=== PATIENT | female | born 1955 | race Caucasian/White ===

== ENCOUNTER → 2019-10-06 12:01 | Outpatient (CLI) | payer MEDICARE, SELFPAY ==
--- NOTE | ~2019-10-06 | MM_ITS ---
EXAMINATION: MM screening [facility] BI w abdullahi HISTORY: Screening mammogram TECHNIQUE: Craniocaudal and mediolateral oblique 3-D tomosynthesis images were obtained and synthetic 2-D images were generated. CAD analysis was submitted and interpreted. COMPARISON: Comparison to multiple prior studies sequentially, with oldest reviewed study dated 11/23. BREAST PARENCHYMAL COMPOSITION: There are scattered areas of fibroglandular density. FINDINGS: Benign-appearing bilateral breast masses are stable. There is no evidence of suspicious mas s, calcification, or architectural distortion to suggest malignancy in either breast. There has been no suspicious interval change. IMPRESSION: 1. No mammographic evidence of malignancy. 2. Recommend routine screening mammography in one year. BI-RADS Category 1: Negative Reviewed, dictated and finalized at location A.
== END ==
PROVIDERS: Visit Provider Family Medicine
DX: Z12.31 Encounter for screening mammogram for malignant neoplasm of breast (principal)
CPT/HCPCS: 77063; 77067

== ENCOUNTER 2019-10-12 06:51 | Outpatient (CLI) | payer MEDICARE, SELFPAY ==
--- NOTE | ~2019-10-12 | CT_ITS ---
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 Automated exposure control and iterative reconstruction technique were employed . Exam dose: 556.77 mGy-cm total exam DLP. COMPARISON: 12/28/2018 CT chest abdomen pelvis FINDINGS: CHEST CT: Right Port-A-Cath catheter is again noted. Stable bilateral apical pulmonary scarring. No new or enlarging pulmonary mass. No pulmonary infiltra te or consolidation. Status post left thyroidectomy. There is substernal multinodular right thyroid goiter. No hilar or mediastinal mass lesion or lymphadenopathy. Thoracic aortic and great vessel and coronary artery calcifications. Normal heart size. No pericardial or pleural effusion. ABDOMEN CT: Stable occasional hepatic and right renal cysts. No interval hepatic, splenic, pancreatic, adrenal or renal space-occupying mass lesion. The gallbladder is present. No gallbladder wall thickening or per icholecystic fluid or inflammation. No bile duct or pancreatic duct dilatation. No urinary tract calculus or hydroureteronephrosis. There is extensive calcification of the abdominal aorta and branches; no abdominal aortic aneurysm. N o intraperitoneal or retroperitoneal mass lesion or adenopathy or ascites. No bowel obstruction or intraperitoneal free air. The examination does not include the pelvis. No suspicious osteolytic or osteoblastic lesions are noted. Degenerative changes of the thoracic and lumbar spine, including severe degenerative disc disease at L4-5 fusion at L5-S1.. IMPRESSION: No evidence of metastatic disease or significant change since 12/28/2018 Reviewed, dictated and finalized at Location A. Reviewed, dictated and finalized at location B.
[2019-10-12 07:25] LABS: Estimated Glomerular Filt Rate > 60
== END 2019-10-12 06:52 | disposition home or self-care (01) ==
PROVIDERS: PCP Family Medicine; Visit Provider Internal Medicine Medical Oncology
DX: C18.6 Malignant neoplasm of descending colon (principal)
CPT/HCPCS: 36415; 71260; 74160; Q9967

== ENCOUNTER 2020-01-11 06:37 | Outpatient (CLI) | payer MEDICARE, SELFPAY ==
--- NOTE | ~2020-01-11 | CT_ITS ---
EXAMINATION: CT chest abdomen w con INDICATION: Malignant neoplasm of the descending colon TECHNIQUE: Computed tomographic images of the chest and abdomen were obtained after the administratio n of 100 cc of Omnipaque 350 intravenous contrast. The dose-length product (DLP) was 536.45 mGy-cm. A utomated exposure control and iterative reconstruction technique were employed. COMPARISON: 10/12/2019 FINDINGS: CHEST: There are stable opacities of the right upper lobe. No new or suspicious pulmonary nodule is i dentified. The lungs are free of acute airspace opacities. There is no pleural effusion or pneumothor ax. A right subclavian Port-A-Cath ends with its tip in the right atrium. No pathologically enlarged thoracic lymph nodes are identified. The heart size is normal. There are changes of left thyroidectom y. Multinodular goiter of the right thyroid lobe is again noted. There is calcified coronary artery a therosclerosis. ABDOMEN: Stable cysts of the liver measure up to 8 mm. The spleen, pancreas, gallbladder, and adrenal glands are normal. Cysts of the kidneys measure up to 11 mm on the right. There is calcified atheros clerosis of the aorta and many of the other arteries. Changes of right hemicolectomy are noted. There are no pathologically enlarged abdominal lymph nodes. A moderate volume of colonic stool is present. There is severe lumbar spondylosis. IMPRESSION: 1. No evidence of metastatic disease. Reviewed, dictated and finalized at location A.
[2020-01-11 07:06] LABS: Estimated Glomerular Filt Rate > 60
== END 2020-01-11 06:38 | disposition home or self-care (01) ==
LOC: ANHIMG 06:42
PROVIDERS: PCP Family Medicine; Visit Provider Internal Medicine Medical Oncology
DX: C18.6 Malignant neoplasm of descending colon (principal)
CPT/HCPCS: 36415; 71260; 74160; Q9967

== ENCOUNTER 2020-04-11 07:46 | Outpatient (CLI) | payer MEDICARE, SELFPAY ==
--- NOTE | ~2020-04-11 | CT_ITS ---
EXAMINATION: CT chest abdomen w con DATE: 04/11/2020 08:36 INDICATION: Malignant neoplasm of descending colon TECHNIQUE: Computed tomography (CT) of the chest and abdomen was performed with 100 cc Omnipaque 350 intravenous contrast. Automated exposure control and iterative reconstruction technique were employed . Exam dose: 570.10 mGy-cm total exam DLP. COMPARISON: 01/11/2020 CT chest abdomen 05/01/2014 CT chest abdomen pelvis FINDINGS: CHEST CT: There is bilateral apical scarring, including approximately 7.4 x 9 mm pleura-based opacity in the la teral right upper lung field, without significant change since 04/14/2014. Apical blebs are again note d, primarily on the right. There is a small linear discoid scarring in the posterolateral left lower lobe, stable since 05/01/2014. No pulmonary infiltrate or consolidation or pulmonary mass lesion is noted otherwise. There is right thyroid enlargement and calcification, extending into the superior mediastinum, consis tent with thyroid goiter. There is resection of the left thyroid lobe. No hilar or mediastinal mass lesion or lymphadenopathy. No thoracic aortic aneurysm or dissection. There is thoracic aortic, great vessel and coronary artery atherosclerotic calcification. Right Port-A-Cath catheter tip in upper right atrium. Normal heart size. No pericardial effusion. No pleural effusion. ABDOMEN CT: 8 mm and 4 mm probable hepatic cysts, unchanged since 01/11/2020. No interval hepatic space-occupying m ass lesion is evident. Normal splenic size. The gallbladder is present. No gallbladder wall thickening or pericholecystic fluid or fat stranding. No bile duct or pancreatic duct dilatation. No pancreatic mass lesion or calcification. Normal morphology of the adrenal glands. 6 mm upper pole and 1 cm lower pole right renal probable cysts, stable since 01/11/2020. Probable 3 mm upper pole left renal cyst, stable. No urinary tract calculus or hydronephrosis is evid ent. There is atherosclerotic calcification of the abdominal aorta, renal arteries and common iliac arteri es. No abdominal aortic aneurysm. No intraperitoneal or retroperitoneal mass lesion or adenopathy or ascites. No suspicious osteolytic or osteoblastic lesions are noted. Severe degenerative disc disease at lowest included interspace, L4-5. IMPRESSION: Status post left thyroid lobectomy Right thyroid goiter Stable bilateral apical scarring, right greater than left Right Port-A-Cath Stable 8 and 4 mm hepatic cysts Several subcentimeter renal cysts No significant change since 01/11/2020 Reviewed, dictated and finalized at Location A. Reviewed, dictated and finalized at location B.
[2020-04-11 08:31] LABS: Estimated Glomerular Filt Rate > 60
== END 2020-04-11 07:47 | disposition home or self-care (01) ==
LOC: ANHIMG 07:49
PROVIDERS: PCP Family Medicine; Visit Provider Internal Medicine Medical Oncology
DX: C18.6 Malignant neoplasm of descending colon (principal); E04.1 Nontoxic single thyroid nodule; R91.8 Other nonspecific abnormal finding of lung field
CPT/HCPCS: 71260; 74160; Q9967

== ENCOUNTER 2020-07-10 06:35 | Outpatient (CLI) | payer MEDICARE, SELFPAY ==
--- NOTE | ~2020-07-10 | CT_ITS ---
EXAMINATION: CT chest abdomen w con DATE: 07/10/2020 07:06 INDICATION: Colon cancer restaging TECHNIQUE: Computed tomography (CT) of the chest and abdomen was performed with 100 cc Omnipaque 350 intravenous contrast. Automated exposure control and iterative reconstruction technique were employed . Exam dose: 588.88 mGy-cm total exam DLP. COMPARISON: 04/11/2020 CT chest abdomen FINDINGS: CHEST CT: There is right thyroid goiter with calcifications, extending into the superior mediastinum. Status po st left thyroid lobectomy. Normal heart size. No pericardial effusion. No hilar or mediastinal mass lesion or lymphadenopathy. No thoracic aortic aneurysm or dissection. Bilateral apical scarring. No pulmonary infiltrate or consolidation. Right Port-A-Cath catheter tip in upper right atrium. ABDOMEN CT: Probable 2.5 mm hepatic dome cyst (series 3 image 99). 7.5 mm medial segment left hepatic lobe cyst ( image 108) Approximately 7 mm hypoattenuating lesion at the lower aspect of the right hepatic lobe (image 150) a ppears stable compared to 12/28/2018. This is too small to definitively characterize. Differential francisco gnosis includes hepatic cyst, less likely cavernous hemangioma or metastasis. Consider CT follow-up e xamination in 6 months. The liver, spleen, pancreas, adrenal glands are otherwise unremarkable. 9.5 mm and 7 mm right renal cysts. 3 mm left renal cyst. The kidneys are otherwise unremarkable. No u rinary tract calculus or hydroureteronephrosis. There is extensive atherosclerotic calcification of the abdominal aorta, iliac arteries and and at th e origins of the renal arteries. No abdominal aortic aneurysm. No intraperitoneal or retroperitoneal mass lesion or adenopathy or ascites. There is severe degenerative disc disease in the lower cervical spine. Degenerative spurring of the t horacic spine. Severe degenerative disc disease at L4-5. L5-S1 is excluded from examination. IMPRESSION: Several probable hepatic cysts Bilateral renal cysts Right thyroid goiter; status post left thyroid lobectomy Right Port-A-Cath catheter in upper right atrium Reviewed, dictated and finalized at Location A. Reviewed, dictated and finalized at location A. YTICS MANAGER
[2020-07-10 06:59] LABS: Estimated Glomerular Filt Rate > 60
== END 2020-07-10 06:36 | disposition home or self-care (01) ==
PROVIDERS: PCP Family Medicine; Visit Provider Internal Medicine Medical Oncology
DX: C18.6 Malignant neoplasm of descending colon (principal); N28.1 Cyst of kidney, acquired; E04.1 Nontoxic single thyroid nodule; Z95.828 Presence of other vascular implants and grafts
CPT/HCPCS: 71260; 74160; Q9967

== ENCOUNTER 2020-09-07 10:44 | Outpatient (CLI) | payer MEDICARE, SELFPAY ==
--- NOTE | ~2020-09-07 | MR_ITS ---
EXAMINATION: MR lumbar spine wo [facility] EXAM DATE: 09/07/2020 11:47 INDICATION: Lumbar disc disease. TECHNIQUE: Multi-sequential, multiplanar MR images of the lumbar spine were obtained without contrast . Sagittal T1, T2, T2 fat saturation images. Axial T2 weighted images. There is no prior study for comparison. FINDINGS: Complete osseous fusion of the L5-S1 vertebral bodies. There is severe loss of the L4-5 dis c height, but only mild endplate degenerative signal change. The vertebral bodies are aligned in the AP dimension. The conus medullaris terminates at the T12-L1 level and has normal signal intensity and morphology. There is a hemangioma in the inferior endplate of L1. Level by level evaluation: T12-L1: Disc does not extend beyond the endplate margin. Facet arthropathy: Mild. Neural foraminal stenosis: No stenosis. Central canal stenosis: No stenosis. L1-L2: Disc does not extend beyond the endplate margin. Facet arthropathy: Mild. Neural foraminal stenosis: No stenosis. Central canal stenosis: No stenosis. L2-L3: Disc does not extend beyond the endplate margin. Facet arthropathy: Mild. Neural foraminal stenosis: No stenosis. Central canal stenosis: No stenosis. L3-L4: There is a mild diffuse disc bulge. Facet arthropathy: Mild to moderate. Neural foraminal stenosis: No stenosis. Central canal stenosis: No stenosis. L4-L5: There is a mild to moderate diffuse disc bulge. Facet arthropathy: Mild to moderate. Neural foraminal stenosis: Moderate left, mild to moderate right. Central canal stenosis: Mild. L5-S1: There is mild to moderate posterior disc osteophyte complex. Facet arthropathy: Mild to moderate. Neural foraminal stenosis: Mild bilateral. Central canal stenosis: Mild. IMPRESSION: 1. Lower lumbar predominant spondylosis. Reviewed, dictated and finalized at location B. DRILL OPERATOR
== END 2020-09-07 10:45 | disposition home or self-care (01) ==
LOC: ANHIMG 10:47
PROVIDERS: PCP Family Medicine; Visit Provider Family Medicine
DX: M51.36 Other intervertebral disc degeneration, lumbar region (principal); M47.816 Spondylosis without myelopathy or radiculopathy, lumbar region
CPT/HCPCS: 72148

== ENCOUNTER → 2020-10-08 14:00 | Outpatient (CLI) | payer MEDICARE, SELFPAY ==
--- NOTE | ~2020-10-08 | MM_ITS ---
EXAMINATION: MM screening [facility] BI w abdullahi HISTORY: Screening mammogram TECHNIQUE: Craniocaudal and mediolateral oblique 3-D tomosynthesis images were obtained and synthetic 2-D images were generated. CAD analysis was submitted and interpreted. COMPARISON: 10/06/2019, 07/15/2018, 06/25/2017 BREAST PARENCHYMAL COMPOSITION: There are scattered areas of fibroglandular density. FINDINGS: A stable mass in the anterior third of the right breast is considered benign given the lack of interval change. There is no evidence of suspicious mass, calcification, or architectural distort ion to suggest malignancy in either breast. There has been no suspicious interval change. IMPRESSION: 1. No mammographic evidence of malignancy. 2. Recommend routine screening mammography in one year. BI-RADS Category 2: Benign finding(s). Reviewed, dictated and finalized at location A.
== END ==
PROVIDERS: PCP Family Medicine; Visit Provider Family Medicine
DX: Z12.31 Encounter for screening mammogram for malignant neoplasm of breast (principal)
CPT/HCPCS: 77063; 77067

== ENCOUNTER → 2020-11-03 07:05 | Outpatient (CLI) | payer MEDICARE, SELFPAY ==
[2020-11-03 20:54] LABS: SARS-CoV-2 RNA PCR Negative
== END ==
PROVIDERS: PCP Family Medicine; Visit Provider Internal Medicine Gastroenterology
DX: Z01.812 Encounter for preprocedural laboratory examination (principal); Z20.822 Contact with and (suspected) exposure to COVID-19
CPT/HCPCS: C9803; U0003; U0005

== ENCOUNTER 2020-11-07 04:47 | Day surgery (SDC) | payer MEDICARE, SELFPAY ==
[2020-11-01 09:11] VITALS: BMI 26.8
[2020-11-07 07:52] VITALS: BP 140/67; PULSE 113; RESP 18; TEMP 36.9; O2SAT 100
[2020-11-07] MEDS: LACTATED RINGERS 1,000 ML 150 ML IV CONT (08:01)
--- NOTE | 2020-11-07 08:25 | WPDANESEPPF ---
Anes - Initial Pre Proc Eval Procedure: Operation Date: 11/07/20 09:00 Proposed Procedures p Screening Colonoscopy - Leland Mendoza MD Date/Time: 11/07/20 08:25 Surgeon: Leland Mendoza MD Pre Op Diagnosis: hx of colon ca Patient Data Age: 65 Gender: F Height: 5 ft 7 in Weight: 77 kg Last Vital Signs Temp 98.5 F 11/07/20 07:52 Pulse 113 H 11/07/20 07:52 Resp 18 11/07/20 07:52 BP 140/67 11/07/20 07:52 Pulse Ox 100 11/07/20 07:52 Allergies Allergy/AdvReac Type Severity Reaction Status Date / Time codeine Allergy Unknown Nausea and Verified 11/07/20 07:50 Vomiting Sulfa (Sulfonamide Allergy Unknown Rash Verified 11/07/20 07:50 Antibiotics) sulfamethizole Allergy Unknown Hives Verified 11/07/20 07:50 Home Medications Medication Instructions Recorded Confirmed Type atorvastatin 20 mg PO DAILY 11/01/20 11/01/20 History lisinopril-hydrochlorothiazide 1 tablet PO DAILY 11/01/20 11/01/20 History pantoprazole 40 mg PO DAILY 11/01/20 11/01/20 History Patient hx anesthesia problems: none Family hx anesthesia problems: none PMFSH Past Medical History Medical History (Updated 11/07/20 @ 08:25 by Rajesh Li MD) Arthritis H/O colon cancer, stage I Hyperlipidemia Hypertension Family History Family History (Updated 10/17/16 @ 23:56 by DOCTOR UNKNOWN) Father Family history of diabetes mellitus in first degree relative Family history of heart disease in male family member before age 55 Hypertension Family history of elevated blood lipids Family history of coronary artery disease, Onset Age: 65 Patient's father is Mother Family history of heart disease in male family member before age 55 Hypertension Family history of chronic obstructive pulmonary disease Family history of coronary artery disease, Onset Age: 82 Patient's mother is Sibling Family history of heart disease in male family member before age 55 Family history of premature coronary heart disease, Onset Age: 62 Family history of diabetes mellitus in first degree relative Other Diabetes mellitus Family history of allergic disorder Social History Social History Smoking status: Former smoker Smoking end date: 07/13/04 Alcohol intake: current Alcohol use details: glass of wine every night Substance use type: does not use Living arrangements: with family Gender identity (if verbalized by the patient): Female Spiritual care concerns: No Anes - Eval Final PreProcedure Day of Procedure 11/07/20 08:25 Patient weight: overweight Heart: regular rate and rhythm Lungs: clear to auscultation Airway: Mallampati scale class II Neurological: alert and oriented Last oral intake: >/= 8 hours ASA classification: III Emergent: no Anesthetic plan: proceed Anesthesia type and monitoring: general GIVS and standard monitoring Informed Consent: The patient's anesthetic plan and its attendant risks and benefits were discussed with the patient/family/POA. Questions were solicited and answers provided to the satisfaction of the patient/family/POA.
[2020-11-07 09:07] VITALS: BP 120/71; PULSE 100; RESP 20; O2SAT 98
[2020-11-07 09:17] VITALS: BP 123/74; PULSE 102; RESP 21; O2SAT 99
[2020-11-07 09:27] VITALS: BP 134/69; PULSE 104; RESP 23; O2SAT 98
--- NOTE | 2020-11-09 11:06 | PM.HPGS ---
History of Present Illness History of Present Illness Consent: Risks, benefits, and alternatives have been discussed and questions answered. Patient agrees to proceed with procedure. Chief complaint: hx of colon ca Narrative: Lesly Gregory is a 65 year old female with history of colon cancer Review of Systems Review of Systems: All systems reviewed & are unremarkable except as noted in HPI and below PMFSH Past Medical History Medical History Arthritis H/O colon cancer, stage I Hyperlipidemia Hypertension Family History Family History Father Family history of diabetes mellitus in first degree relative Family history of heart disease in male family member before age 55 Hypertension Family history of elevated blood lipids Family history of coronary artery disease, Onset Age: 65 Patient's father is Mother Family history of heart disease in male family member before age 55 Hypertension Family history of chronic obstructive pulmonary disease Family history of coronary artery disease, Onset Age: 82 Patient's mother is Sibling Family history of heart disease in male family member before age 55 Family history of premature coronary heart disease, Onset Age: 62 Family history of diabetes mellitus in first degree relative Other Diabetes mellitus Family history of allergic disorder Social History Social History Smoking status: Former smoker Smoking end date: 07/13/04 Alcohol intake: current Alcohol use details: glass of wine every night Substance use type: does not use Living arrangements: with family Gender identity (if verbalized by the patient): Female Spiritual care concerns: No Meds Home Medications and Allergies Home Medications Medication Instructions Recorded Confirmed Type atorvastatin 20 mg PO DAILY 11/01/20 11/01/20 History lisinopril-hydrochlorothiazide 1 tablet PO DAILY 11/01/20 11/01/20 History pantoprazole 40 mg PO DAILY 11/01/20 11/01/20 History Allergies Allergy/AdvReac Type Severity Reaction Status Date / Time codeine Allergy Unknown Nausea and Verified 11/07/20 07:50 Vomiting Sulfa (Sulfonamide Allergy Unknown Rash Verified 11/07/20 07:50 Antibiotics) sulfamethizole Allergy Unknown Hives Verified 11/07/20 07:50 Exam Const: General: alert Orientation/consciousness: patient oriented x3 Resp: Auscultation: clear to auscultation bilaterally Cardio: Rhythm: regular rhythm GI: GI Palp: Yes Soft to palpation and No Tenderness to palpation present (GI) Neuro: General: patient oriented x3 Assessment and Plan Assessment and plan (1) History of colon cancer: Code(s): Z85.038 - Personal history of other malignant neoplasm of large intestine Status: Acute Assessment and Plan: Colonoscopy with possible biopsy or polypectomy or cautery or injection of substances.
== END 2020-11-07 09:43 | disposition home or self-care (01) ==
PROVIDERS: PCP Family Medicine; Visit Provider Internal Medicine Gastroenterology
PROC: 0DJD8ZZ Inspection of Lower Intestinal Tract, Via Natural or Artificial Opening Endoscopic (ICD-10-PCS; CPT 45378; principal; 2020-11-07 09:00)
DX: Z12.11 Encounter for screening for malignant neoplasm of colon (principal); K57.30 Diverticulosis of large intestine without perforation or abscess without bleeding; Z98.0 Intestinal bypass and anastomosis status; M19.90 Unspecified osteoarthritis, unspecified site; E78.5 Hyperlipidemia, unspecified; Z87.891 Personal history of nicotine dependence; Z85.038 Personal history of other malignant neoplasm of large intestine; I10 Essential (primary) hypertension
CPT/HCPCS: G0105; J2704; J7120

== ENCOUNTER 2020-12-25 06:52 | Outpatient (CLI) | payer MEDICARE, SELFPAY ==
--- NOTE | ~2020-12-25 | CT_ITS ---
EXAMINATION: CT chest abdomen w con EXAM DATE: 12/25/2020 07:26 INDICATION: Colon cancer, metastatic disease to liver. TECHNIQUE: Spiral CT of the chest and abdomen was performed following intravenous injection of 100 mL Omnipaque 350. Axial, coronal and sagittal images chest and abdomen were reviewed. Coronal maximum intensity pixel images of chest reviewed. The dose-length product (DLP) for this examination was 56 8.38 mGy-cm. The exposure was tailored according to patient size (auto mA exposure control), and ite rative reconstruction (ASIR) was used as additional dose reduction technique. Comparison is made to p rior examination from 07/10/2020. FINDINGS: CHEST: There is a right-sided portacatheter. Small amount of biapical scarring is unchanged. Mild em physema. No suspicious pulmonary opacities. There are no pleural or pericardial effusions. Tracheo bronchial tree is patent. There is no mediastinal, hilar or axillary lymphadenopathy. There is no pneumothorax. Heart normal in size. There is mild coronary arterial calcification, arterial scle rosis. Left thyroid lobectomy. Enlarged heterogeneous right thyroid lobe. No central pulmonary embol i. ABDOMEN: Liver segment 4A cyst measuring 8 mm. The liver, spleen, adrenal glands and pancreas are ot herwise unremarkable. Gallbladder is unremarkable. No biliary obstruction. Portal and splenic vein s are patent. Kidneys enhance symmetrically. There is no hydronephrosis. There is no retroperito alber lymphadenopathy. There is moderate scattered arteriosclerotic disease. The stomach and small bowel are unremarkable. There is expected amount of colonic stool. No free i ntraperitoneal gas. There are no osteoblastic or osteolytic lesions identified. IMPRESSION: 1. Stable exam. No evidence of thoracic or abdominal metastatic disease. Reviewed, dictated and finalized at location B.
[2020-12-25 11:41] LABS: Estimated Glomerular Filt Rate > 60
== END 2020-12-25 06:53 | disposition home or self-care (01) ==
PROVIDERS: PCP Family Medicine; Visit Provider Internal Medicine Medical Oncology
DX: C78.00 Secondary malignant neoplasm of unspecified lung (principal); C78.7 Secondary malignant neoplasm of liver and intrahepatic bile duct
CPT/HCPCS: 71260; 74160; Q9967

== ENCOUNTER 2021-06-25 07:08 | Outpatient (CLI) | payer MEDICARE, SELFPAY ==
--- NOTE | ~2021-06-25 | CT_ITS ---
EXAMINATION: CT chest abdomen pelvis w con EXAM DATE: 06/25/2021 07:47 INDICATION: Malignant cancer metastatic to lung. TECHNIQUE: Spiral CT of the chest, abdomen and pelvis was performed following intravenous injection o f 100 mL Omnipaque 350. Axial, coronal and sagittal images chest, abdomen and pelvis were reviewed. Coronal maximum intensity pixel images of chest reviewed. The dose-length product (DLP) for this ex amination was 814.85 mGy-cm. The exposure was tailored according to patient size (auto mA exposure c ontrol), and iterative reconstruction (ASIR) was used as additional dose reduction technique. Compari son is made to prior examination from 12/25/2020. FINDINGS: CHEST: There is a right-sided portacatheter. Small amount of biapical scarring is unchanged. Mild em physema. No new or suspicious pulmonary opacities. There are no pleural or pericardial effusions. Tracheobronchial tree is patent. There is no mediastinal, hilar or axillary lymphadenopathy. Ther e is no pneumothorax. Heart normal in size. There is mild coronary arterial calcification, arteri al sclerosis. Left thyroid lobectomy. Enlarged heterogeneous right thyroid lobe. No central pulmonar y emboli. ABDOMEN: Liver segment 4A subcentimeter cyst The liver, spleen, adrenal glands and pancreas are othe rwise unremarkable. Gallbladder is unremarkable. No biliary obstruction. Portal and splenic veins are patent. Kidneys enhance symmetrically. There is no hydronephrosis. There is no retroperitone al lymphadenopathy. There is moderate scattered arteriosclerotic disease. 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 The stomach and small bowel are unremarkable. There is expected amount of colonic stool. No free i ntraperitoneal gas. There are no osteoblastic or osteolytic lesions identified. IMPRESSION: 1. No evidence of thoracic or abdominal metastatic disease. 2. 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 Reviewed, dictated and finalized at location B. RING AND EVENTS MANAGER
[2021-06-25 07:39] LABS: Estimated Glomerular Filt Rate > 60
== END 2021-06-25 07:09 | disposition home or self-care (01) ==
LOC: ANHIMG 07:12
PROVIDERS: PCP Family Medicine; Visit Provider Internal Medicine Medical Oncology
DX: C80.1 Malignant (primary) neoplasm, unspecified (principal); C78.00 Secondary malignant neoplasm of unspecified lung; C78.7 Secondary malignant neoplasm of liver and intrahepatic bile duct; I70.90 Unspecified atherosclerosis
CPT/HCPCS: 71260; 74177; Q9967

== ENCOUNTER → 2021-10-31 12:34 | Outpatient (CLI) | payer MEDICARE, SELFPAY ==
--- NOTE | ~2021-10-31 | MM_ITS ---
EXAMINATION: MM screening zeeshan BI w abdullahi HISTORY: Screening mammogram TECHNIQUE: Craniocaudal and mediolateral oblique 3-D tomosynthesis images were obtained and synthetic 2-D images were generated. CAD analysis was submitted and interpreted. COMPARISON: 10/08/2020, 10/06/2019, 07/15/2018 bilateral screening mammogram examinations 07/01/2017 Limited left breast ultrasound 06/25/2017 bilateral screening mammogram 03/13/2016, 02/22/2015 and 11/23/2013 [address] examinations from [facility] in [place], [place] BREAST PARENCHYMAL COMPOSITION: There are scattered areas of fibroglandular density. FINDINGS: There is a circumscribed low-density approximately 5.5 mm opacity in the superior subareola r area on the left breast which is unchanged since 11/23/2013. The mammographic features and the stabi lity for 8 years are consistent with benign process. There is no evidence of suspicious mass, calcifi cation, or architectural distortion to suggest malignancy in either breast. There has been no suspici ous interval change. IMPRESSION: 1. No mammographic evidence of malignancy. 2. Recommend routine screening mammography in one year. BI-RADS Category 2: Benign finding(s). Reviewed, dictated and finalized at location A.
== END ==
PROVIDERS: PCP Family Medicine; Visit Provider Family Medicine
DX: Z12.31 Encounter for screening mammogram for malignant neoplasm of breast (principal)
CPT/HCPCS: 77063; 77067

== ENCOUNTER 2021-12-24 07:11 | Outpatient (CLI) | payer MEDICARE, SELFPAY ==
--- NOTE | ~2021-12-24 | CT_ITS ---
EXAMINATION: CT chest abdomen pelvis wo con DATE: 12/24/2021 07:31 INDICATION: Colon cancer metastatic to lung; restaging TECHNIQUE: Computed tomography (CT) of the chest, abdomen, and pelvis was performed without intraveno us contrast. Automated exposure control and iterative reconstruction technique were employed. Exam do se: 592.51 mGy-cm total exam DLP. COMPARISON: 06/25/2021 CT chest abdomen pelvis FINDINGS: CHEST CT: Right Port-A-Cath in superior aspect of right atrium. Right thyroid goiter with calcifications, extending into superior mediastinum. Mild bilateral apical scarring. Chronic peripheral scar in the anterolateral right upper lobe. No si gnificant new or developing pulmonary mass density. No pulmonary infiltrate or consolidation. No pneumothorax. Normal heart size. No pericardial or pleural effusion. ABDOMEN/PELVIS CT: 8 mm medial segment left hepatic probable cyst. The liver, gallbladder, bile ducts, pancreas, pancrea tic duct, spleen, and adrenal glands and kidneys are otherwise unremarkable. No urinary tract calculu s or hydroureteronephrosis. The urinary bladder, uterus and adnexal areas are unremarkable. There is prominent atherosclerotic calcification of the abdominal aorta and branches. No intraperiton eal or retroperitoneal or pelvic mass lesion or adenopathy or ascites. Normal appendix. No bowel obstruction or intraperitoneal free air. Very small fat-containing umbilical hernia. Degenerative disc disease in lower cervical spine. Severe degenerative disc disease at L5-S1. Bilateral hip osteoarthritis. IMPRESSION: Right Port-A-Cath in right atrium Right thyroid goiter Chronic mild lung scarring Reviewed, dictated and finalized at Location A. Reviewed, dictated and finalized at location A.
== END 2021-12-24 07:12 | disposition home or self-care (01) ==
PROVIDERS: PCP Family Medicine; Visit Provider Internal Medicine Medical Oncology
DX: C34.90 Malignant neoplasm of unspecified part of unspecified bronchus or lung (principal); C78.00 Secondary malignant neoplasm of unspecified lung; E04.9 Nontoxic goiter, unspecified
CPT/HCPCS: 71250; 74176

== ENCOUNTER 2022-06-25 06:46 | Outpatient (CLI) | payer MEDICARE, SELFPAY ==
--- NOTE | ~2022-06-25 | CT_ITS ---
EXAMINATION: CT chest abdomen pelvis wo con DATE: 06/25/2022 07:08 INDICATION: Malignant neoplasm of the descending colon TECHNIQUE: Transaxial computed tomographic images of the chest, abdomen, and pelvis were obtained wit hout intravenous contrast. The dose-length product (DLP) was 608.30 mGy-cm. Automated exposure contr ol and iterative reconstruction technique were employed. COMPARISON: 12/24/2021, 06/25/2021 FINDINGS: CHEST CT: There are stable nodules of the right upper lobe and left lower lobe. No pleural effusion or pneumoth orax. There is a stable 1.5 x 0.7 cm groundglass nodule of the right lower lobe. There is mild emphys toño. The lungs are free of acute airspace opacities. A right subclavian Port-A-Cath ends with its tip in the right atrium. Multinodular goiter of the right thyroid lobe is again noted. No pathologically enlarged thoracic lymph nodes are identified. The heart size is normal. There is calcified coronary artery atherosclerosis. ABDOMEN/PELVIS CT: There is an 8 mm cyst of the left hepatic lobe. The spleen, pancreas, gallbladder, and adrenal glands are normal. The kidneys are unremarkable. There is calcified atherosclerosis of the aorta and many o f the other arteries. No pathologically enlarged abdominal or pelvic lymph nodes are identified. Ther e are changes of right hemicolectomy. There is no free intraperitoneal gas or evidence of bowel obstr uction. There is severe lumbar spondylosis. IMPRESSION: 1. Stable chronic nodules of the lungs which could reflect stable metastatic disease. No new findings . Reviewed, dictated and finalized at location A. ER CONTROL OPERATOR IMPRESSION: 1. Stable chronic nodules of the lungs which could reflect stable metastatic di sease. No new findings.
== END 2022-06-25 06:47 | disposition home or self-care (01) ==
PROVIDERS: PCP Family Medicine; Visit Provider Internal Medicine Medical Oncology
DX: C18.8 Malignant neoplasm of overlapping sites of colon (principal); Z45.9 Encounter for adjustment and management of unspecified implanted device; R91.8 Other nonspecific abnormal finding of lung field
CPT/HCPCS: 71250; 74176

== ENCOUNTER 2022-11-03 11:55 | Outpatient (CLI) | payer MEDICARE, SELFPAY ==
--- NOTE | ~2022-11-03 | DEXA_ITS ---
Bone Density Report Name: ELIAS CUMMINGS Age: 67 Sex: Female Ethnicity: White Date of : 1955 Indication: hyperparathyroidism; height loss; cancer; Referring Provider: MONIQUE, SARAH Norwood Study: Bone densitometry was performed. Exam Date: November 03, 2022 Accession number: [id number] Bone Density: Region BMD T-score Z-score Classification AP Spine(L1, L2, L3) 1.145 1.2 3.1 Normal Femoral Neck (Left) 0.711 -1.2 0.5 Osteopenia Total Hip (Left) 0.836 -0.9 0.6 Normal Femoral Neck (Right) 0.678 -1.5 0.2 Osteopenia Total Hip (Right) 0.834 -0.9 0.5 Normal Femoral Neck Mean 0.694 -1.4 0.3 Osteopenia Total Hip Mean 0.835 -0.9 0.6 Normal World Health Organization criteria for BMD impression classify patients as: Normal (T-score at or above -1.0), Osteopenia (T-score between -1.0 and -2.5), or Osteoporosis (T-score at or below -2.5). 10-year Fracture Risk(1): Major Osteoporotic Fracture 12% Hip Fracture 2.0% Reported Risk Factors: [place] (), Neck BMD=0.678, BMI=26.6, alcohol use (1) FRAX(R) Version 3.08. Fracture probability calculated for an untreated patient. Fracture probability may be lower if the patient has received treatment. Clinical Information Provided by Patient: Has 3 or more alcoholic drinks per day Has the following medical conditions: Cancer, Hyperparathyroidism Patient maximum height was 66 Menopause Age: 53 No regular weight bearing exercise Does not regularly consume dairy products Drinks caffeinated beverages Onset of menses at age 12 Number of children 2 Impression: The patient has low bone mass, based on the Right Femoral Neck T-score. The patient has risk factors, including: excessive alcohol use. Discussion: BONE DENSITY IS LOW AT ONE OR MORE SKELETAL SITES. This patient's lowest T-score is low at one or more skeletal sites. It meets the World Health Organization's (WHO) criteria for ?low bone mass? (T-score between -1.0 and -2.5). The patient's 10-year risk of fracture as calculated by FRAX is less than the threshold where pharmacological therapy is recommended by the National Osteoporosis Foundation (NOF). However, all treatment decisions require clinical judgment and consideration of individual patient factors, including patient preferences, comorbidities, previous drug use, risk factors not captured in the FRAX model (e.g., frailty, falls, vitamin D deficiency, increased bone turnover, interval significant decline in bone density) and possible under or overestimation of fracture risk by FRAX. The patient should follow a healthful lifestyle (good nutrition with adequate calcium and vitamin D, and appropriate weight-bearing exercise). Follow-Up: Consider repeating this study in 2 to 3 years to reassess this patient's status, or reji
--- NOTE | ~2022-11-03 | MM_ITS ---
EXAMINATION: MM screening zeeshan BI w abdullahi HISTORY: Screening mammogram TECHNIQUE: Craniocaudal and mediolateral oblique 3-D tomosynthesis images were obtained and synthetic 2-D images were generated. CAD analysis was submitted and interpreted. COMPARISON: 10/31/2021, 10/08/2020, 10/06/2019 bilateral screening mammogram examinations BREAST PARENCHYMAL COMPOSITION: There are scattered areas of fibroglandular density. FINDINGS: Occasional circumscribed low-density small benign appearing stable opacities. There is no e vidence of suspicious mass, calcification, or architectural distortion to suggest malignancy in eithe r breast. There has been no suspicious interval change. IMPRESSION: 1. No mammographic evidence of malignancy. 2. Recommend routine screening mammography in one year. BI-RADS Category 2: Benign finding(s). Reviewed, dictated and finalized at location A.
== END 2022-11-03 11:56 | disposition home or self-care (01) ==
LOC: CHSIMG 11:57
PROVIDERS: PCP Family Medicine; Visit Provider Family Medicine
DX: Z12.31 Encounter for screening mammogram for malignant neoplasm of breast (principal); Z78.0 Asymptomatic menopausal state; M85.89 Other specified disorders of bone density and structure, multiple sites
CPT/HCPCS: 77063; 77067; 77080

== ENCOUNTER 2023-01-02 11:35 | Emergency (ER) | payer MEDICARE, SELFPAY ==
[2023-01-02] VITALS (14 sets, daily range): BP systolic 106–157; BP diastolic 52–73; PULSE 85–110; RESP 12–22; TEMP 37.3; O2SAT 96–100
--- NOTE | ~2023-01-02 | XR_ITS ---
EXAMINATION: XR chest 2V 01/02/2023 11:58 INDICATION: Chest pain PROCEDURE: 2 view chest COMPARISON: 02/17/2013 FINDINGS: The lungs are clear. Portacatheter tip in the SVC. The cardiomediastinal silhouette is with in normal limits. There are no pleural effusions. There is no pneumothorax suspected. There is api benita pleural thickening/scarring. IMPRESSION: 1: NO ACUTE CARDIOPULMONARY DISEASE. Reviewed, dictated and finalized at location []
--- NOTE | 2023-01-02 11:36 | ED.CHESTPAIN ---
HPI - Chest Pain General Chief Complaint: Chest Pain Stated Complaint: Chest pain Time Seen by Provider: 01/02/23 11:36 Source: patient and RN notes reviewed Mode of arrival: ambulatory Limitations: no limitations History of Present Illness complaint: chest pain Onset (ago): day(s) (2) Timing of current episode: constant Onset: during rest Pain location: substernal Pain radiation: left arm Quality: aching and sharp Relieving factors: nothing Exacerbating factors: inspiration and movement Treatment prior to arrival: none Risk Factors Coronary artery disease risk factors: smoking history, hyperlipidemia and hypertension Related Data Home Medications Medication Instructions Recorded Confirmed atorvastatin 20 mg tablet 20 mg PO DAILY 11/01/20 01/02/23 lisinopril 20 1 tablet PO DAILY 11/01/20 01/02/23 mg-hydrochlorothiazide 25 mg tablet pantoprazole 40 mg tablet,delayed 40 mg PO DAILY 11/01/20 01/02/23 release Allergies Allergy/AdvReac Type Severity Reaction Status Date / Time codeine Allergy Unknown Nausea and Verified 01/02/23 11:43 Vomiting Sulfa (Sulfonamide Allergy Unknown Rash Verified 01/02/23 11:43 Antibiotics) sulfamethizole Allergy Unknown Hives Verified 01/02/23 11:43 PMFSH Past Medical History Medical History Arthritis JOSEPH (generalized anxiety disorder) H/O colon cancer, stage I Hyperlipidemia Hypertension Primary malignant neoplasm of colon with metastasis in female Family History Family History Father Family history of diabetes mellitus in first degree relative Family history of heart disease in male family member before age 55 Hypertension Family history of elevated blood lipids Family history of coronary artery disease, Onset Age: 65 Patient's father is Mother Family history of heart disease in male family member before age 55 Hypertension Family history of chronic obstructive pulmonary disease Family history of coronary artery disease, Onset Age: 82 Patient's mother is Sibling Family history of heart disease in male family member before age 55 Family history of premature coronary heart disease, Onset Age: 62 Family history of diabetes mellitus in first degree relative Other Diabetes mellitus Family history of allergic disorder Social History Social History Smoking status: Former smoker Smoking end date: 07/13/04 Alcohol intake: current Alcohol use details: glass of wine every night Substance use type: does not use Living arrangements: with family Gender identity (if verbalized by the patient): Female Spiritual care concerns: No Exam Const: General: healthy appearing, no acute distress and alert Nutritional Appearance: well nourished Orientation/consciousness: patient oriented x3 Limitations: no limitations HENMT: Head: normal to inspection Ears: external ears normal Face/Nose/Sinus: Normal external nose present Face and sinus: normal facial exam Mouth: Yes moist mucous membranes Eyes: Conjunctivae: conjunctivae normal Pupils: Equal, round and reactive pupils present EOM: EOMs intact bilaterally Neck: Neck: normal visual inspection Chest: Chest palpation & inspection: tenderness pectoral muscle on the left diffusely Resp: Effort & Inspection: normal respiratory effort Auscultation: clear to auscultation bilaterally Cardio: Rate: regular rate Rhythm: regular rhythm GI: GI Palp: Yes Soft to palpation and No Tenderness to palpation present (GI) Auscultation: normal bowel sounds Back/Spine/Pelvis: Cervical Spine: cervical ROM normal Thoracic/Lumbar Spine: thoraco-lumbar ROM normal Skin: General skin exam: normal color Rashes: no rashes Neuro: General: patient oriented x3, moves all extremities, no focal motor deficits and
--- NOTE | 2023-01-02 11:41 | ECG_ITS ---
Measurements Intervals [place] Rate: 98 P: 76 SC: 156 QRS: 38 QRSD: 95 T: 19 QT: 349 QTc: 447 Interpretive Statements SINUS RHYTHM POSSIBLE PREVIOUS INFERIOR MYOCARDIAL INFARCTION , II/aVF] ABNORMAL ECG COMPARED TO ECG 09/01/2018 15:51:02 NO SIGNIFICANT CHANGES Electronically Signed On 01-02-2023 16:22:46 CDT by Mane Carlson M.D.
[2023-01-02] MEDS: ASPIRIN 81 MG CHEWABLE TABLET 324 MG PO (11:48)
[2023-01-02 12:07] LABS: Basophils Absolute Auto 0.04 K/mm3 (0.00-0.10); Basophils Percent Auto 0.5 % (0.0-1.0); Eosinophils Absolute Auto 0.12 K/mm3 (0.02-0.50); Eosinophils Percent Auto 1.4 % (1.0-6.0); Hematocrit 38.5 % (35.0-42.0); Hemoglobin 12.6 g/dL (11.7-13.8); Immature Granulocyte Absolute 0.02 K/mm3 (0.00-0.00); Immature Granulocyte Percent A 0.2 % (0.0-0.0); Lymphocytes Absolute Auto 1.99 K/mm3 (1.10-4.50); Lymphocytes Percent Auto 23.3 % (18.0-42.0); Mean Corpuscular HGB Conc 32.7 g/dL (32.0-36.0); Mean Corpuscular Hemoglobin 30.9 pg (27.0-31.0); Mean Corpuscular Volume 94.4 fL (78.0-102.0); Mean Platelet Volume 9.9 fl (9.2-11.8); Monocytes Absolute Auto 0.58 K/mm3 (0.10-0.90); Monocytes Percent Auto 6.8 % (2.0-11.0); Neutrophils Absolute Auto 5.8 K/mm3 (1.7-7.2); Neutrophils Percent Auto 67.8 % (50.0-70.0); Platelet Count Result 344 K/mm3 (150-420); Red Blood Count 4.08 M/mm3 (4.20-5.40); Red Cell Distribution Width 12.8 % (11.6-14.4); White Blood Count 8.5 K/mm3 (4.8-10.8)
[2023-01-02 12:21] LABS: INR 0.9; Partial Thromboplastin Time 29.1 SEC (23.90-30.70); Prothrombin Time 9.8 Seconds (9.50-12.10)
[2023-01-02 12:24] LABS: D Dimer 0.34 mg/L (0.19-0.50)
[2023-01-02 12:27] LABS: Alanine Aminotransferase 26 U/L (14-59); Albumin Level 3.9 g/dL (3.4-5.0); Alkaline Phosphatase 92 U/L (46-116); Anion Gap 8 mmol/L (8-16); Aspartate Amino Transferase 21 U/L (15-37); Bilirubin,Total 0.3 mg/dL (0.00-1.00); Blood Urea Nitrogen 28 mg/dL (7-18); Calcium 9.5 mg/dL (8.5-10.1); Carbon Dioxide 30 mmol/L (21-32); Chloride 100 mmol/L (98-108); Estimated CRCL calculation 55 ml/min; Estimated Glomerular Filt Rate > 60; Glucose 111 mg/dL (70-99); Osmolality Calculated 292 mOsm/kg (285-295); Potassium 3.6 mmol/L (3.5-5.1); Sodium 138 mmol/L (136-145); Total Protein 7.5 g/dL (6.4-8.2); Troponin I 4.4 ng/L (0.00-60.4)
--- NOTE | 2023-01-02 12:34 | PC.NURSE ---
PT IS LYING ON STRETCHER IN EXAM ROOM TALKING WITH . NAD NOTED. VSS PER MONITOR. PT IS AWAITING RESULTS. WILL CONTINUE TO MONITOR.
[2023-01-02 13:00] LABS: Magnesium 1.9 mg/dL (1.8-2.4)
== END 2023-01-02 13:00 | disposition home or self-care (01) ==
PROVIDERS: Emergency Provider Emergency Medicine; PCP Family Medicine
DX: R07.89 Other chest pain (principal); E78.5 Hyperlipidemia, unspecified; I10 Essential (primary) hypertension; Z87.891 Personal history of nicotine dependence; Z85.038 Personal history of other malignant neoplasm of large intestine
CPT/HCPCS: 36415; 71046; 80053; 83735; 84484; 85025; 85380; 85610; 85730; 93005; 99284; A9270

== ENCOUNTER 2023-05-21 12:21 | Outpatient (CLI) | payer MEDICARE, SELFPAY | END 2023-05-21 12:22 | disposition home or self-care (01) | LOC: CHSIMG 12:23 | PROVIDERS: PCP Family Medicine; Visit Provider Family Medicine | DX: I73.00 Raynaud's syndrome without gangrene (principal) | CPT/HCPCS: 99199 ==

== ENCOUNTER 2023-06-12 08:25 | Outpatient (CLI) | payer MEDICARE, SELFPAY ==
--- NOTE | ~2023-06-12 | US_ITS ---
US arterial ankle brachial ind INDICATION: Raynaud's disease. TECHNIQUE: Segmental pressures and plethysmographic and Doppler waveforms of the brachial and lower e xtremity arteries were obtained. COMPARISON: None. FINDINGS: Right and left brachial artery pressures of 137 mm Hg and 132 mm Hg, respectively, are concordant (no rmal difference <= 30 mmHg). The right ankle-brachial index (TALYA) is 1.28 (normal >= 0.9-1.0). The right great toe-brachial index (TBI) is 0.54 (normal >= 0.60). The left TALYA is 1.17. The left TBI is 0.61. IMPRESSION: 1. Normal bilateral ankle-brachial indices. 2: Mildly decreased right toe brachial index measuring 0.54, consistent with peripheral arterial dis ease. Reviewed, dictated and finalized at location B. O VISUAL TECH IMPRESSION: 1. Normal bilateral ankle-brachial indices. 2: Mildly decreased right toe brachial index measuring 0.54, consistent with p eripheral arterial disease.
== END 2023-06-12 08:26 | disposition home or self-care (01) ==
LOC: CHSIMG 08:27
PROVIDERS: PCP Family Medicine; Visit Provider Family Medicine
DX: I73.00 Raynaud's syndrome without gangrene (principal)
CPT/HCPCS: 93922

== ENCOUNTER 2023-06-25 07:24 | Outpatient (CLI) | payer MEDICARE, SELFPAY ==
--- NOTE | ~2023-06-25 | CT_ITS ---
Clinical Indication: Colon cancer CT Scan of the Chest, Abdomen, and Pelvis without Contrast: Technique: Contiguous sections were acquired throughout the chest, abdomen, and pelvis without IV con trast administration. Dose reduction technique was used on this scan by utilizing automated exposure control and iterative reconstruction technique. The dose-length product (DLP) was 670.62 mGy-cm. COMPARISON: 06/25/2022 Findings: Right-sided Mediport in place. Stable enlarged, heterogeneous right thyroid lobe, compatibl e with multinodular goiter. There is no evidence of any significant mediastinal, hilar or axillary lymphadenopathy. The mediastin al soft tissues appear normal. There is no evidence of pleural or pericardial effusion. Stable biapical scarring. Stable groundglass nodule in the right lower lobe (axial image 77). The liver, spleen, pancreas, gallbladder, adrenals and kidneys are within normal limits. No lymphade nopathy. There are atherosclerotic calcifications of the aorta. No bowel obstruction or bowel wall thickening. There is no evidence to suggest acute appendicitis. Urinary bladder is unremarkable. No pelvic mass seen. No ascites. Impression: No change in prior exam. No definite evidence for active malignancy or metastatic disease. Stable presumed biapical scarring. Stable groundglass right lower lobe pulmonary nodule. Reviewed, dictated and finalized at location . AT ANALYST Impression: No change in prior exam. No definite evidence for active malignancy or metastat ic disease. Stable presumed biapical scarring. Stable groundglass right lower lobe pulmonar y nodule.
== END 2023-06-25 07:25 | disposition home or self-care (01) ==
LOC: CHSIMG 07:26
PROVIDERS: PCP Family Medicine; Visit Provider Nurse Practitioner Family
DX: C18.6 Malignant neoplasm of descending colon (principal); R91.8 Other nonspecific abnormal finding of lung field
CPT/HCPCS: 71250; 74176

== ENCOUNTER 2023-11-06 07:57 | Outpatient (CLI) | payer MEDICARE, SELFPAY ==
--- NOTE | ~2023-11-06 | US_ITS ---
EXAMINATION: US thyroid DATE: 11/06/2023 08:26 INDICATION: Nontoxic multinodular goiter. TECHNIQUE: Multiple ultrasound images of the thyroid were obtained. COMPARISON: Neck CT 04/14/2014, thyroid ultrasound 09/03/2011 FINDINGS: The right thyroid lobe measures 6.2 x 3.5 x 3.7 cm. The left thyroid lobe is absent. The right lower lobe demonstrates heterogeneous echogenicity. In the right thyroid lobe, there is a 14 mm mixed cyst ic and solid, hyperechoic, taller than wide nodule with ill-defined margin without echogenic foci (TI -RADS TR4). In the right thyroid lobe, there is a 6 mm coarse calcification. IMPRESSION: 1. Thyroid nodules. Consider thyroid ultrasound in one year. 2. Left hemithyroidectomy. Reviewed, dictated and finalized at location A.
--- NOTE | ~2023-11-06 | MM_ITS ---
EXAMINATION: MM screening zeeshan BI w abdullahi HISTORY: Screening mammogram TECHNIQUE: Craniocaudal and mediolateral oblique 3-D tomosynthesis images were obtained and synthetic 2-D images were generated. CAD analysis was submitted and interpreted. COMPARISON: November 03, 2022, October 31, 2021 bilateral screening mammogram examinations BREAST PARENCHYMAL COMPOSITION: There are scattered areas of fibroglandular density. FINDINGS: There is no evidence of suspicious mass, calcification, or architectural distortion to sugg est malignancy in either breast. There has been no suspicious interval change. IMPRESSION: 1. No mammographic evidence of malignancy. 2. Recommend routine screening mammography in one year. BI-RADS Category 1: Negative Reviewed, dictated and finalized at location A.
== END 2023-11-06 07:58 | disposition home or self-care (01) ==
LOC: CHSIMG 07:58
PROVIDERS: PCP Family Medicine; Visit Provider Family Medicine
DX: Z12.31 Encounter for screening mammogram for malignant neoplasm of breast (principal); E04.2 Nontoxic multinodular goiter; Z98.890 Other specified postprocedural states
CPT/HCPCS: 76536; 77063; 77067

== ENCOUNTER 2024-06-14 07:26 | Outpatient (CLI) | payer MEDICARE, SELFPAY ==
--- NOTE | ~2024-06-14 | CT_ITS ---
Clinical Indication: Colon cancer CT Scan of the Chest, Abdomen, and Pelvis with Contrast: Technique: Contiguous sections were acquired throughout the chest, abdomen, and pelvis after intraven ous administration of 100 cc of Omnipaque 350. Dose reduction technique was used on this scan by uti lizing automated exposure control and iterative reconstruction technique. The dose-length product (DL P) was 576.45 mGy-cm. Comparison: 06/25/2023 Findings: Stable large probable multinodular right thyroid lobe. Probable prior left hemithyroidectom y. There is no evidence of any significant mediastinal, hilar or axillary lymphadenopathy. The mediastin al soft tissues and vascular structures appear normal. There is no evidence of pleural or pericardial effusion. Stable focal vague groundglass opacity in the right lower lobe (axial image 85).. Mild emphysema note d the upper lobes. The liver, spleen, pancreas, gallbladder, adrenals and kidneys are within normal limits. There are at herosclerotic calcifications of the aorta. No lymphadenopathy. No bowel obstruction or bowel wall thickening. There is no evidence to suggest acute appendicitis. Urinary bladder is unremarkable. No pelvic mass seen. No ascites. Impression: No evidence for active malignancy or metastatic disease. Stable vague groundglass opacity right lower lobe, as detailed above. Mild emphysema. Reviewed, dictated and finalized at location . CTOR OF TAX SERVICES Impression: No evidence for active malignancy or metastatic disease. Stable vague groundglass opacity right lower lobe, as detailed above. Mild emphysema.
[2024-06-14 07:58] LABS: Estimated Glomerular Filt Rate > 60
== END 2024-06-14 07:27 | disposition home or self-care (01) ==
LOC: CHSIMG 07:28
PROVIDERS: PCP Internal Medicine; Visit Provider Nurse Practitioner Family
DX: C18.6 Malignant neoplasm of descending colon (principal); C78.00 Secondary malignant neoplasm of unspecified lung; R91.8 Other nonspecific abnormal finding of lung field; J43.9 Emphysema, unspecified
CPT/HCPCS: 71260; 74177; Q9967

== ENCOUNTER 2024-07-14 10:54 | Outpatient (CLI) | payer MEDICARE, SELFPAY ==
[2024-07-14 11:22] LABS: Basophils Absolute Auto 0.04 K/mm3 (0.00-0.10); Basophils Percent Auto 0.5 % (0.0-1.0); Eosinophils Absolute Auto 0.17 K/mm3 (0.02-0.50); Hematocrit 37.6 % (35.0-42.0); Hemoglobin 12.3 g/dL (11.7-13.8); Immature Granulocyte Absolute 0.02 K/mm3 (0.00-0.00); Immature Granulocyte Percent A 0.2 % (0.0-0.0); Lymphocytes Absolute Auto 1.48 K/mm3 (1.10-4.50); Lymphocytes Percent Auto 17.8 % (18.0-42.0); Mean Corpuscular HGB Conc 32.7 g/dL (32-36); Mean Corpuscular Volume 91.7 fL (78.0-102.0); Mean Platelet Volume 9.9 fl (9.2-11.8); Monocytes Absolute Auto 0.65 K/mm3 (0.10-0.90); Monocytes Percent Auto 7.8 % (2.0-11.0); Neutrophils Absolute Auto 5.95 K/mm3 (1.70-7.20); Neutrophils Percent Auto 71.7 % (50.0-70.0); Platelet Count Result 356 K/mm3 (150-420); Red Cell Distribution Width 12.8 % (11.6-14.4); White Blood Count 8.3 K/mm3 (4.8-10.8)
[2024-07-14 11:29] LABS: INR 0.9; Prothrombin Time 10.4 Seconds (9.50-12.1)
== END 2024-07-14 10:55 | disposition home or self-care (01) ==
LOC: CHSLAB 10:59
PROVIDERS: PCP Internal Medicine; Visit Provider Nurse Practitioner Family
DX: C18.6 Malignant neoplasm of descending colon (principal); D68.9 Coagulation defect, unspecified
CPT/HCPCS: 36415; 85025; 85610

== ENCOUNTER 2024-11-07 12:45 | Outpatient (CLI) | payer MEDICARE, SELFPAY ==
--- NOTE | ~2024-11-07 | DEXA_ITS ---
Bone Density Report Name: ELIAS CUMMINGS Age: 69 Sex: Female Ethnicity: White Date of : 1955 Indication: hyperparathyroidism; cancer; Referring Provider: Nae Yeung Study: Bone densitometry was performed. Exam Date: November 07, 2024 Accession number: [id number] Bone Density: Region BMD T-score Z-score Classification AP Spine(L1, L2, L3) 1.142 1.1 3.2 Normal Femoral Neck (Left) 0.722 -1.1 0.7 Osteopenia Total Hip (Left) 0.871 -0.6 1.0 Normal Femoral Neck (Right) 0.722 -1.1 0.7 Osteopenia Total Hip (Right) 0.857 -0.7 0.8 Normal Femoral Neck Mean 0.722 -1.1 0.7 Osteopenia Total Hip Mean 0.864 -0.6 0.9 Normal World Health Organization criteria for BMD impression classify patients as: Normal (T-score at or above -1.0), Osteopenia (T-score between -1.0 and -2.5), or Osteoporosis (T-score at or below -2.5). 10-year Fracture Risk(1): Major Osteoporotic Fracture 11% Hip Fracture 1.6% Reported Risk Factors: [place] (), Neck BMD=0.722, BMI=26.8, alcohol use (1) FRAX(R) Version 3.08. Fracture probability calculated for an untreated patient. Fracture probability may be lower if the patient has received treatment. Previous Exams: Region Exam Age BMD T-score BMD Change BMD Change Date g/cm2 vs Baseline vs Previous AP Spine (L1-L3) 11/07/2024 69 1.142 1.1 -0.003 (-0.3%) -0.003 (-0.3%) 11/03/2022 67 1.145 1.2 Total Hip(Left) 11/07/2024 69 0.871 -0.6 0.035 (4.2%)* 0.035 (4.2%)* 11/03/2022 67 0.836 -0.9 Total Hip(Right) 11/07/2024 69 0.857 -0.7 0.023 (2.8%) 0.023 (2.8%) 11/03/2022 67 0.834 -0.9 *Denotes significance at 95% confidence level, LSC for AP Spine = 0.022 g/cm2, LSC for Total Hip = 0.027 g/cm2 Clinical Information Provided by Patient: Has 3 or more alcoholic drinks per day Has the following medical conditions: Cancer, Hyperparathyroidism Patient maximum height was 67. Menopause Age: 53 No regular weight bearing exercise Does not regularly consume dairy products Onset of menses at age 12 Number of children 2 Impression: The patient has low bone mass, based on the Left Femoral Neck T-score. The patient has risk factors, including: excessive alcohol use. No significant bone loss was observed. Discussion: BONE DENSITY IS LOW AT ONE OR MORE SKELETAL SITES. This patient's lowest T-score is low at one or more skeletal sites. It meets the World Health Organization's (WHO) criteria for ?low bone mass? (T-score between -1.0 and -2.5). The patient's 10-year risk of fracture as calculated by FRAX is less than the threshold where pharmacological therapy is recommended by the National Osteoporosis Foundation (NOF). However, all treatment decisions require clinical judgment and consideration of individual patient factors, including patient preferences, comorbidities, previous drug use, risk factors not captured in the FRAX model (e.g., frailty, falls, vitamin D deficiency, increased bone turnover, interval significant decline in bone density) and possible under or overestimation of fracture risk by FRAX. The patient should follow a healthful lifestyle (good nutrition with adequate calcium and vitamin D, and appropriate weight-bearing exercise). Follow-Up: Consider repeating this study in 2 to 3 years to reassess this patient's status, or sooner if there is some new clinical indication. Reported by: KOTA on 11/07/2024 1:20:00 PM. Reviewed, dictated and finalized at location A.
--- NOTE | ~2024-11-07 | MM_ITS ---
EXAMINATION: MM screening zeeshan BI w abdullahi HISTORY: Screening mammogram TECHNIQUE: Craniocaudal and mediolateral oblique 3-D tomosynthesis images were obtained and synthetic 2-D images were generated. CAD analysis was submitted and interpreted. COMPARISON: 11/06/2023, 11/03/2022, 10/31/2021, 10/08/2020 BREAST PARENCHYMAL COMPOSITION:Not Dense. The breasts are almost entirely fatty FINDINGS: No suspicious mass, calcification, or architectural distortion are identified in either wolf ast to suggest malignancy. There has been no suspicious interval change. IMPRESSION: No mammographic evidence of malignancy. Recommend routine screening mammography in one year. BI-RADS Category 1: Negative Reviewed, dictated and finalized at location .
--- OUTSIDE RECORDS SUMMARY | 2024-11-07 14:25 | XMS_ITS ---
Author Organization [facility] Address [address] [place] [address] Phone Care Team Providers Care Landscape Management Technician Name Role Phone Mercedes Coello MD Primary Care Provider + Gwen Grant BEHAVIORAL TECHNICIAN Unavailable [phone] Active Problems Problem Noted Date Diagnosed Date Left carpal tunnel syndrome 04/22/2019 Right carpal tunnel syndrome 04/22/2019 Arthritis of carpometacarpal (CMC) joint of left thumb 04/22/2019 Arthritis of carpometacarpal (CMC) joint of righ t thumb 04/22/2019 Encounter for management of implanted device Malignant neoplasm of descending colon 8 Dizziness 04/23/2015 Toxic multinodular goiter with no crisis 014 Overview (10/15/2016): TOX MULTNOD GOIT NO FREDA Postoperative hypothyroidism 11/26/2013 Overview (10/16/2016): POSTSURGICAL HYPOTHYROID Lung mass 03/16/2013 Current Treatment and Therapy Plans No current plan information found. Past Treatment and Therapy Plans Line Care Plan Name Start Date Discontinue Date Treatment Medications Discontinue Reason Plan Provider IV MAINTENANCE THERAPY PLAN 11/03/2018 09/22/2023 No medications scheduled. Automatic discontinuation of dormant plans Alan Cano Jr., MD Oncology Chemotherapy Treatment Plan Name Start Date Discontinue Date Treatment Medications Discontinue Reason Plan Provider Cycles Bevacizumab 21 Day Cycles - Colon / Cycle #33- Last treatment 06-15-2019 until after 07-20-2019 8 01/01/2021 bevacizumab (AVASTIN) IVPB No Evidence of Disease Alan Cano Jr., MD 21 of 21 cycles started Lifetime Dose Tracking * Chemical Lifetime Dose Automatic Entry Manual Entr y Fluoro Time 9.8 minutes 9.8 minutes 0 minutes Air kerma at the reference point (Ka,r) 54 mGy 5 4 mGy 0 mGy
--- OUTSIDE RECORDS SUMMARY | 2024-11-07 14:25 | XMS_ITS | CONTINUITY OF CARE DOCUMENT ---
Author Name yuri welch Address Unknown Organization [facility] Address [address] [place] [address] [address] [place] [address] Phone [phone] Care Team Providers Care Chemical Equipment Repairer Name Role Phone Edwardo SOMMERS, Rishi Unavailable [phone] MONIQUE SOMMERS, SARAH Norwood Unavailable [phone] INSURANCE PROVIDERS Payer name Policy type / Coverage type Aguila red green party ID AARP [employer] insurance company [id number] [place] MED[place] Medicare [id number]
--- OUTSIDE RECORDS SUMMARY | 2024-11-07 14:25 | XMS_ITS | Encounter Summary ---
Author Organization [facility] Address [address] [place] [address] Phone Care Team Providers Care Director Medicaid Name Role Phone Mercedes Coello MD Primary Care Provider + Gwen Grant ANIMAL HUSBANDRY PROFESSOR Unavailable [phone] Encounter Details Date Type Department Care Team (Latest Contact Info) Description 06/14/2024 Orders Only [facility] Scanning, Provider Social History Tobacco Use Types Packs/Day Years Used Date Smoking Tobacco: Former Cigarettes Q uit: 2006 Smokeless Tobacco: Never Alcohol Use Standard Drinks/Week Comments Yes 0 (1 standard drink = 0.6 oz pur e alcohol) AUDIT-C Answer Date Recorded Q1: How often do you have a drink containing alcohol? 4 or more times a week 07/02/2021 Average Number of Drinks Not on file 021 Q3: How often do you have si x or more drinks on one occasion? 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 Gender Identity Not on file Sexual Orientation Straight 07/16/2020 9: 25 AM PANTOGRAPH I ENGRAVER documented as of this encounter Plan of Treatment Not on file documented as of this encounter Procedures Procedure Name Priority Date/Time Associated Diagnosis Comments SCAN - RADIOLOGY/IMAGING 06/14/2024 documented in this encounter Results * SCAN - RADIOLOGY/IMAGING (06/14/2024) Anatomical Region Laterality Modality Other us Provider Scanning Final Result documented in this encounter Visit Diagnoses Not on filedocumented in this encounter Care Teams Director Medicaid Relationship Specialty Start Date End Date Mercedes Coello MD PCP - General 11/11/17 Gwen Grant NP [address] [place] [address] Nurse Practitioner Medical Oncology 07/01/23 documented as of this encounter
--- OUTSIDE RECORDS SUMMARY | 2024-11-07 14:25 | XMS_ITS | Referral Summary ---
Author Organization [facility] Address [address] [place] [address] Phone Care Team Providers Care Building Surveyor Name Role Phone Mercedes Coello MD Primary Care Provider + Gwen Grant STREAMING MEDIA SPECIALIST Unavailable [phone] Allergies Active Allergy Reactions Criticality Noted Date Comments Codeine Nausea only,Vomiting Low Rosuvastatin Stomach upset Low 01/01/2021 Sulfa (Sulfonamide Antibiotics) Hives,Other (See comments) Medium Reaction: Other Medications pantoprazole DR (PROTONIX) 40 mg EC tablet TK 1 T PO QD 4 11/10/2017 Active zolpidem (AMBIEN) 5 mg tabletIndication s:Sleep-Onset Insomnia TK 1 T PO D 4 11/10/2017 Active atorvastatin (LIPITOR) 20 mg tablet TK 1 T PO QD 4 06/15/2018 Active lisinopril-hydro CHLOROthiazide (ZESTORETIC) 20-25 mg per tablet TK 1 T PO QD 4 04/14/2019 Active amLODIPine (NORVASC) 2.5 mg tablet TAKE 1 TABLET BY MOUTH EVERY DAY dx I73.00 Active escitalopram (LEXAPRO) 10 mg tablet Take 1 tablet every day by oral route. Active Active Problems Problem Noted Date Diagnosed Date [...] Overview (10/16/2016): POSTSURGICAL HYPOTHYROID Lung mass 03/16/2013 Immunizations Immunization Administration Dates Next Due Influenza, Quadrivalent, Hig h Dose, Preservative Free, Intrr 05/14/2020 Influenza, Quadrivalent, Split, Intramuscular Influenza, Quadrivalent, Spl it, Preservative Free, Intramuscular 04/29/2018,05/13/2017 Influenza, Trivalent, High D ose, Split, Preservative Free, Intramuscular 05/12/2019 Influenza, Trivalent, IM (MDV) 05/24/2013 Pfizer SARS-CoV-2 Monovalent Vaccination (12+ Yrs) PURPLE 09/26/2020,09/05/2020 Pneumococcal Polysaccharide PPV23 05/13/2017 Pneumococcal, Unspecified 04/12/2017 Td, adsorbed 11/22/1998 Social History Tobacco Use Types Packs/Day Years Used Date Smoking Tobacco: Former Cigarettes Q uit: 2006 Smokeless Tobacco: Never Tobacco Cessation:Counseling Given: Not Answered Alcohol Use Standard Drinks/Week Comments Yes 0 (1 standard drink = 0.6 oz pur e alcohol) AUDIT-C Answer Date Recorded Q1: How often do you have a drink containing alcohol? 4 or more times a week 07/21/2024 Q2: How many drinks containi ng alcohol do you have on a typical day when you are drinking? 3 or 4 Q3: How often do you have si x or more drinks on one occasion? Never 07/21/2024 Personal Safety Answer Date Recorded Have you ever been in or are you currently in a harmful physical or emotional relationship or is someone making you feel afraid or unsafe? Denies 07/21/2024 Comments Unknown Sex and Gender Information Value Date Recorded Sex Assigned at Not on file Legal Sex Female 12:38 AM GRE INSTRUCTOR Gender Identity Not on file Sexual Orientation Straight 07/16/2020 9: 25 AM GRE INSTRUCTOR Last Filed Vital Signs Vital Sign Reading Time Taken Comments Blood Pressure 132/73 07/21/2024 12:20 PM GRE INSTRUCTOR Pulse 103 07/21/2024 12:20 PM GRE INSTRUCTOR Temperature 36.3 C (97.3 F) 07/21/2024 11:55 AM GRE INSTRUCTOR Respiratory Rate 16 07/21/2024 12:20 PM GRE INSTRUCTOR Oxygen Saturation 100% 07/21/2024 12:20 PM GRE INSTRUCTOR Inhaled Oxygen Concentration - - Weight 74.8 kg (165 lb) 07/21/2024 8:33 AM GRE INSTRUCTOR Height 170.2 cm (5' 7 ) 07/02/2023 10:48 AM GRE INSTRUCTOR Body Mass Index 25.84 07/02/2023 10:48 AM GRE INSTRUCTOR Plan of Treatment Not on file Medical Devices Implanted Type Area Project Scheduler Device Identifier Shelf Expiration Date Model / Serial / Lot Pac Right: [place] [address] [facility] MEDICARE [facility] Address: [address] [address] [place] [address] [place] [address] MEDICARE [facility] [place] [address] MEDICARE [facility] Advance Directives For more information, please contact: [phone] * Full Code (Latest Code Status on File) Date Activated Date Inactivated Comments 07/21/2024 8:23 AM 07/22/2024 5:07 AM Care Teams Building Surveyor Relationship Specialty Start Date End Date Mercedes Coello MD PCP - General 11/11/17 Gwen Grant NP [address] [place] [address] Nurse Practitioner Medical Oncology 07/01/23
--- OUTSIDE RECORDS SUMMARY | 2024-11-07 14:25 | XMS_ITS | Clinical Summary ---
Author Organization [facility] Address [address] [place] [address] Care Team Providers Care Customs Entry Writer Name Role Phone Archana Franklin MD Primary Care Provider + Source Comments [facility],non-owned Affiliates and Associated Physician Practices is amultiple site organization consisting of ambulatory clinics and hospital sitesin [place], [place], [place] and [place]. This disclosure is being madepursuant to the Care Everywhere program and may not contain all information available regarding this patient. Last updated 18.[facility] Social History Tobacco Use Types Packs/Day Years Used Date Smoking Tobacco: Never Assessed Comments Unknown Sex and Gender Information Value Date Recorded Sex Assigned at Not on file Legal Sex Female 6:46 AM DEPARTMENT SECRETARY Gender Identity Not on file Sexual Orientation Not on file Plan of Treatment Health Maintenance Due Date Last Done Comments BONE DENSITY TESTING 1955 COLOGUARD (AGES 45-75) - COL ON CA SCREENING 1955 COLON MONITORING 1955 COLONOSCOPY - COLON CA SCREENING 1954 CT COLONOGRAPHY - COLON CA SCREENING 1955 Colorectal Cancer Screening 1955 FIT - COLON CA SCREENING 1955 FLEX SIG - COLON CA SCREENING 1955 LIPID TESTING 1955 MAMMOGRAM 1955 HEPATITIS C SCREENING 02/01/1972 DTAP/TDAP/TD VACCINES (1 - Tdap) 1973 PNEUMOCOCCAL VACCINE 50+ (1 of 1 - PCV) 02/06/2004 ZOSTER VACCINE (1 of 2) 02/06/2004 COVID-19 VACCINE ( - 2023-2 5 season) 2024 DEPRESSION SCREENING 07/13/2024 INFLUENZA VACCINE (Season Ended) 2025 Respiratory Syncytial Virus (RSV) Vaccine Pt: or over 60 yrs (1 - 1-dose 75+ series) 2029 HEPATITIS B VACCINE Aged Out No longe r eligible based on patient's age to complete this topic HIB VACCINE Aged Out No longer eligi ble based on patient's age to complete this topic HPV VACCINE Aged Out No longer eligi ble based on patient's age to complete this topic MENINGOCOCCAL (Group B) VACC INE SHARED DECISION-MAKING Aged Out No longer eligibl e based on patient's age to complete this topic MENINGOCOCCAL GROUPS A/C/Y/W VACCINE Aged Out No longer eligible b ased on patient's age to complete this topic Insurance [place] [address] [facility] [employer] Care Teams Customs Entry Writer Relationship Specialty Start Date End Date Archana Franklin MD [address] [place] [address] PCP - General 04/17/20
--- OUTSIDE RECORDS SUMMARY | 2024-11-07 14:25 | XMS_ITS | Clinical Summary ---
Author Organization [facility] Address [address] [place] [address] Care Team Providers Care Adjuster Arbitrator Name Role Phone Mercedes Coello MD Primary Care Provider [phone] Allergies Active Allergy Reactions Criticality Noted Date Comments Codeine Nausea Only,Vomiting Low 09/24/2020 Rosuvastatin Nausea Only,Dizziness,Headache 10/16/2020 Sulfadiazine Rash,Other (see comment) Medium Reaction: Other Medications lisinopril-hydr oCHLOROthiazide 20-25 MG tablet Take 1 tablet by mouth daily. 08/08/2020 Active pantoprazole EC 40 MG tablet Take 40 mg by mouth daily. 09/16/2020 Active zolpidem 5 MG tablet Take 5 mg by mouth nightly as needed. at bedtime. 07/11/2020 Active atorvastatin 20 MG tablet Take 1 tablet (20 mg total) by mouth nightly at bedtime. 30 tablet 10/15/2020 Active Active Problems No known active problems Family History Medical History Relation Comments Heart Attack Brother 1 Open Heart Brother 1 AVR Diabetes Brother 2 CABG Father x3 Coronary artery disease Father Diabetes Father Heart Attack Father CHF Maternal Grandfather Stroke Maternal Grandmother COPD Mother Coronary artery disease Mother Hypertension Mother Stent Cardiac Mother Thyroid Disease Mother Valve Disease Mother Stroke Paternal Grandmother Relation Status Comments Brother 1 Alive Brother 2 (Age 67) Father (Age 71) Maternal Grandfather Maternal Grandmother Mother (Age 82) Paternal Grandfather Paternal Grandmother (Age 54) Social History Tobacco Use Types Packs/Day Years Used Date Smoking Tobacco: Former Cigarettes Q uit: 2008 Smokeless Tobacco: Never Alcohol Use Standard Drinks/Week Comments Yes 0 (1 standard drink = 0.6 oz pur e alcohol) AUDIT-C Answer Date Recorded Q1: How often do you have a drink containing alcohol? 4 or more times a week 09/24/2020 Q2: How many drinks containi ng alcohol do you have on a typical day when you are drinking? 1 or 2 Frequency of Binge Drinking Not on file 09/10 Comments Unknown Sex and Gender Information Value Date Recorded Sex Assigned at Not on file Legal Sex Female 11:16 AM SKIP OPERATOR Gender Identity Not on file Sexual Orientation Not on file Last Filed Vital Signs Vital Sign Reading Time Taken Comments Blood Pressure 132/70 09/24/2020 9:04 AM CDT Pulse 95 09/24/2020 9:04 AM CDT Temperature - - Respiratory Rate - - Oxygen Saturation - - Inhaled Oxygen Concentration - - Weight 79.8 kg (176 lb) 09/24/2020 9:04 AM CDT Height 170.2 cm (5' 7 ) 09/24/2020 9:04 AM CDT Body Mass Index 27.57 09/24/2020 9:04 AM CDT Plan of Treatment Health Maintenance Due Date Last Done Comments Colorectal Cancer Screening Colonoscopy (10 Years) 1955 Hepatitis C 02/06/1972 Mammogram Screening 1994 DTaP, Tdap and Td Vaccines ( 1 - Tdap) 11/23/1998 11/22/1998 Zoster Vaccines (1 of 2) 02/06/2004 AAA SCREENING 2019 Annual Medicare Wellness Visit 2019 Dexa Scan (General) 2019 COVID-19 Vaccine (2 - 2023-2 5 season) 2024 09/05/2020 Pneumococcal Vaccine: 50+ Years (3 of 3 - PCV20 or PCV21) 08/21/2025 08/21/2020, 05/13/2017 RSV Immunization or 60+ Years (1 - 1-dose 75+ series) 2029 Meningococcal B Vaccine Aged Out No l onger eligible based on patient's age to complete this topic Meningococcal Vaccine Aged Out No chanda messi eligible based on patient's age to complete this topic RSV Immunizations Under 20 Months Aged Out No longer eligible b ased on patient's age to complete [place] [address] MEDICARE [facility] Care Teams Adjuster Arbitrator Relationship Specialty Start Date End Date Mercedes Coello MD [address] [place] [address] PCP - General FAMILY PRACTICE 09/04/20
--- OUTSIDE RECORDS SUMMARY | 2024-11-07 14:25 | XMS_ITS | Clinical Summary ---
Author Organization [facility] Address [address] [place] [address] Phone Care Team Providers Care Tube Making Machine Operator Name Role Phone Mercedes Coello MD Primary Care Provider + Gwen Grant DIRECTOR SALES AND MARKETING Unavailable [phone]- [phone] Allergies Active Allergy Reactions Criticality Noted Date [...] 05/13/2017 Pneumococcal, Unspecified 04/12/2017 Td, adsorbed 11/22/1998 Surgical History Surgery Date Site/Laterality Comments TUBAL LIGATION Bilateral tubal ligation THYROIDECTOMY 07/13/2007 - 07/12/2008 Thyroidectomy CO COLONOSCOPY FLX DX W/COLLJ SPEC WHEN PFRMD Colonoscopy (Fiberoptic) - (Added by TW Conv) THYROIDECTOMY, PARTIAL Thyroid Surgery Ryan-Thyroidectomy - (Added by TW Conv) COLECTOMY Partial Colectomy - (Added by TW Conv) COLONOSCOPY HAND SURGERY PORT REMOVAL 07/21/2024 N/A Medical History Medical History Date Comments Disorder of thyroid Thyroid dise ase Hx Other Medical left thyroid lo bectomy Personal history of other en docrine, nutritional and metabolic disease History of hyperlipi demia - (Added by TW Conv) Personal history of other di seases of the circulatory system History of hypertension - (A dded by TW Conv) Colon cancer (HCC) Hypertension GERD (gastroesophageal reflux disease) Family History Medical History Relation Name Comments Other Other 1 Family history of Cancer -lymphoma; Cancer Other 2 Cancer - (Added by TW Conv) Relation Name Status Comments Other 1 Other 2 Social History Tobacco Use Types Packs/Day Years [...] on file Legal Sex Female 12:38 AM POULTRY HATCHERY SUPERVISOR Gender Identity Not on file Sexual Orientation Straight 07/16/2020 9: 25 AM POULTRY HATCHERY SUPERVISOR Obstetrics History Last Filed Vital Signs Vital Sign Reading Time Taken Comments Blood Pressure 132/73 07/21/2024 12:20 PM POULTRY HATCHERY SUPERVISOR Pulse 103 07/21/2024 12:20 PM POULTRY HATCHERY SUPERVISOR Temperature 36.3 C (97.3 F) 07/21/2024 11:55 AM POULTRY HATCHERY SUPERVISOR Respiratory Rate 16 07/21/2024 12:20 PM POULTRY HATCHERY SUPERVISOR Oxygen Saturation 100% 07/21/2024 12:20 PM POULTRY HATCHERY SUPERVISOR Inhaled Oxygen Concentration - - Weight 74.8 kg (165 lb) 07/21/2024 8:33 AM POULTRY HATCHERY SUPERVISOR Height 170.2 cm (5' 7 ) 07/02/2023 10:48 AM POULTRY HATCHERY SUPERVISOR Body Mass Index 25.84 07/02/2023 10:48 AM POULTRY HATCHERY SUPERVISOR Plan of Treatment Health Maintenance Due Date Last Done Comments Colon Cancer Screening-Colonoscopy 1954 Depression Screening 1954 Hepatitis C Screening 1954 Osteoporosis Screening-Bone Density Scan 1954 Hepatitis B Screening 02/06/1972 DTaP/Tdap/Td Vaccine (1 - Tdap) 11/23/1998 9 Well Visit 65+ 2019 Breast Cancer Screening-Mammogram 10/08/20212 021, 03/13/2016 Covid-19 Vaccine (5 - 2023-2 5 season) 2024 11/04/2021, 04/19/2021, 09/26/2020, Additional history exists Influenza Vaccine (#1) 2024 , 05/14/2020, 05/12/2019, Additional history exists Fall Risk Assessment 07/21/2025 07/21/2024 Pneumococcal vaccine 65+ (3 of 3 - PCV20 or PCV21) 08/21/2025 08/21/2020, 05/13/2017, 04/12/2017 Zoster Vaccine Completed 12/11/2022, 09/09/2022 Medical Devices Implanted Type Area Elementary Science Teacher Device Identifier Shelf Expiration Date Model / Serial / Lot Pac Right: [place] [address] [facility] [place] [address] MEDIC[address] [facility] [place] [address] MEDICARE [facility] Member Subscriber Plan / Payer ( fective 2019-Present) Name:Lesly Gregory Relation to Subscriber:Self Name:Lesly Gregory Payer ID:[id number] Group ID:Not on file Type:COMMERCIAL Address: [address] [place] [id number] Advance Directives For more information, please contact: [phone] * Full Code (Latest Code Status on File) Date Activated Date Inactivated Comments 07/21/2024 8:23 AM 07/22/2024 5:07 AM Care Teams Tube Making Machine Operator Relationship Specialty Start Date End Date Mercedes Coello MD PCP - General 11/11/17 Gwen Grant NP [address] [place] [address] Nurse Practitioner Medical Oncology 07/01/23
--- OUTSIDE RECORDS SUMMARY | 2024-11-07 14:25 | XMS_ITS | Clinical Summary ---
Author Organization [facility] Address [address] [place] [address] Phone Care Team Providers Care Filing And Polishing Supervisor Name Role Phone Mercedes Coello MD Primary Care Provider + Social History Tobacco Use Types Packs/Day Years Used Date Smoking Tobacco: Never Assessed Comments No Sex and Gender Information Value Date Recorded Sex Assigned at Not on file Legal Sex Female 9:12 PM CDT Gender Identity Not on file Sexual Orientation Not on file Plan of Treatment Health Maintenance Due Date Last Done Comments DEXA Bone Density 1955 Hepatitis C Virus (HCV) Screening 1955 TdaP Immunization 1955 Colonoscopy 1999 Colorectal Cancer Screening 1999 Cologuard 02/06/2004 Immunochemical Fecal Occult Blood 02/06/2004 Pneumococcal Immunization (5 0+ years) (1 of 1 - PCV) 02/06/2004 Zoster Immunization (1 of 2) 02/06/2004 Mammogram 03/13/2018 03/13/2016 Influenza Immunization (#1) 2024 SARS-COV-2 Immunization ( - season) 2024 Respiratory Syncytial Virus (RSV) Immunization (Adult) (1 - 1-dose 75+ series) 2029 Hepatitis B Immunization Aged Out No longer eligible based on patient's age to complete this topic Meningococcal Immunization (ACWY) Aged Out No longer eligible based on patient's age to complete this topic Rotavirus Immunization Aged Out No lo nger eligible based on patient's age to complete this topic Procedures Procedure Name Priority Date/Time Associated Diagnosis Comments ASHLEY SCREENING BILATERAL DIGITAL W CAD Routine 03/13/2016 4:02 PM CDT Encounter for mammogram to establish baseline mammogram from Last 3 Months or Most Recently Relevant to Health Maintenance Results * ASHLEY SCREENING BILATERAL DIGITAL W CAD (03/13/2016 4:02 PM CDT) Anatomical Region Laterality Modality breast Bilateral Mammography 03/13/2016 3:37 PM CDT Narrative 03/14/2016 7:31 AM CDT - ASHLEY SCREENING BILATERAL DIGITAL W CAD BILATERAL DIGITAL SCREENING MAMMOGRAM WITH CAD WITH MEDIOLATERAL OBLIQUE CRANIOCAUDAL: 03/13/2016 The study was acquired using digital technology and interpreted from soft copy. Current study was also evaluated with ICAD version 7.2. CLINICAL: Routine screening. Patient has no complaints. Personal history of colon cancer. No family history of breast cancer. COMPARISONS: Comparison is made to exams dated: 02/22/2015, 11/23/2013, and 09/16/2012 [facility]. BREAST TISSUE:There are scattered fibroglandular densities in both breasts. FINDINGS: There is a benign nodule in the left breast. No significant masses, calcifications, or other findings are seen in either breast. There has been no significant interval change. IMPRESSION: BI-RAD 2 BENIGN There is no mammographic evidence of malignancy. A 1 year screening mammogram is recommended. The patient has been or will be contacted. The patient will be entered into a reminder system with a target due date of 1 year for her next screening exam. Electronically signed by: Summer spencer/sada:03/13/2016 16:35:18 Professor/Nurse Anesthetist: Laisha Jernigan(Justin), [facility] letter sent: Normal Exam Reading location: [facility] BI-RADS: 2 Benign Procedure Note Summer Ponce MD - 03/14/2016 - ASHLEY SCREENING BILATERAL DIGITAL W CAD BILATERAL DIGITAL SCREENING MAMMOGRAM WITH CAD WITH MEDIOLATERAL OBLIQUE CRANIOCAUDAL: 03/13/2016 The study was acquired using digital technology and interpreted from soft copy. Current study was also evaluated with ICAD version 7.2. CLINICAL: Routine screening. Patient has no complaints. Personal history of colon cancer. No family history of breast cancer. COMPARISONS: Comparison is made to exams dated: 02/22/2015, 11/23/2013, and 09/16/2012 [facility]. BREAST TISSUE:There are scattered fibroglandular densities in both breasts. FINDINGS: There is a benign nodule in the left breast. No significant masses, calcifications, or other findings are seen in either breast. There has been no significant interval change. IMPRESSION: BI-RAD 2 BENIGN There is no mammographic evidence of malignancy. A 1 year screening mammogram is recommended. The patient has been or will be contacted. The patient will be entered into a reminder system with a target due date of 1 year for her next screening exam. Electronically signed by: Summer spencer/sada:03/13/2016 16:35:18 Professor/Nurse Anesthetist: Laisha Jernigan(R), [facility] letter sent: Normal Exam Reading location: [facility] BI-RADS: 2 Benign Archana Franklin MD IMG MAMMO ORDERABLES Final Result from Last 3 Months or Most Recently Relevant to Health Maintenance Care Teams Filing And Polishing Supervisor Relationship Specialty Start Date End Date Mercedes Coello MD [address] [place] [id number] PCP - General Family Medicine 03/13/16
== END 2024-11-07 12:46 | disposition home or self-care (01) ==
PROVIDERS: PCP Internal Medicine; Visit Provider Internal Medicine
DX: Z12.31 Encounter for screening mammogram for malignant neoplasm of breast (principal); Z78.0 Asymptomatic menopausal state; M85.89 Other specified disorders of bone density and structure, multiple sites
CPT/HCPCS: 77063; 77067; 77080

== ENCOUNTER 2024-11-23 09:46 | Outpatient (CLI) | payer MEDICARE, SELFPAY ==
--- OUTSIDE RECORDS SUMMARY | 2024-11-23 10:04 | XMS_ITS | Clinical Summary ---
Author Organization [facility] [employer] Address [address] [place] [address] Care Team Providers Care Email Marketing Assistant Name Role Phone Archana Franklin MD Primary Care Provider + Source Comments [facility],non-owned Affiliates and Associated Physician Practices is amultiple site organization consisting of ambulatory clinics and hospital sitesin [place], [place], [place] and [place]. This disclosure is being madepursuant to the Care Everywhere program and may not contain all information available regarding this patient. Last updated 18.[facility] [employer] Social History Tobacco Use Types Packs/Day Years Used Date Smoking Tobacco: Never Assessed Comments Unknown Sex and Gender Information Value Date Recorded Sex Assigned at Not on file Legal Sex Female 6:46 AM [employer] ADMINISTRATOR Gender Identity Not on file Sexual Orientation [...] to complete this topic [place] [id number] [facility] [employer] Care Teams Email Marketing Assistant Relationship Specialty Start Date End Date Archana Franklin MD [address] [place] [address] PCP - General 04/17/20
--- OUTSIDE RECORDS SUMMARY | 2024-11-23 10:04 | XMS_ITS | Data Portability ---
Author Organization [facility] [place], Main Office Address [address] [place] [address] Assessment No assessment recorded. Plan of Treatment Reminders Order Date Submit Date Provider Last Modified By Organization Details Last Modified Time Details Appointments None recorded. Lab glycohemogl obin, total, blood 2023 024 ROSM[facility] Not available 4 20:40:58 BMP, serum or plasma 2023 024 ROSMERY Not available 4 20:40:38 lipid panel, serum 2023 024 ROSMERY Not available 4 20:40:22 hepatic function panel, serum 2023 024 ROSMERY Not available 4 20:40:30 vitamin D3, 25-hydroxy, serum 2023 024 ROSMERY Not available 4 20:52:48 CBC w/ auto diff 2023 024 ROS[facility] Not available 4 19:42:10 TSH, serum or plasma 2023 024 ROSM[facility] Not available 4 20:48:34 PINA (antinuclea r antibodies) screen, serum 2022 023 ROSMERY Not available 3 08:38:41 erythrocyte sedimentati on rate by westergren method 2022 023 ROSMERY Not available 3 02:53:22 CBC w/ auto diff 2022 023 ROSMERY Not available 3 20:34:00 TSH, serum or plasma 2022 023 ROSMERY Not available 3 22:43:48 Referral vascular surgeon referral - Please call patient to schedule an appointment . Thank you. 2023 024 [email or web address] [facility], [address], [address], [place], [address], 4 09:12:48 Procedures None recorded. Surgeries None recorded. Imaging MAMMO, screening, digital, bilateral - *Please call pt to schedule w/ US* 2023 024 [facility], [address] [place], [address], Ph [phone] 4 12:00:12 US, thyroid - *Please call pt to schedule* 2023 024 [facility], [address] [place], [address], Ph [phone] 4 10:56:54 ankle brachial index - *Please call pt to schedule* 2022 023 [email or web address] [facility] (Imaging), [address] [place], [address], 3 12:29:12 Medication Orders zolpidem 5 mg tablet 2023 024 [facility]/Pharmacy #[id number], [address] [place], [address], 4 12:52:03 pantoprazol e 40 mg tablet,chrissy yed release 2023 024 [facility]/Pharmacy #[id number], [address] [place], [address], 4 12:52:00 lisinopril 20 mg-hydrochl orothiazide 25 mg tablet 2023 024 [facility]/Pharmacy #[id number], [address] [place], [address], 4 12:52:01 amlodipine 5 mg tablet 2023 024 [facility]/Pharmacy #[id number], [address] [place], [address], 4 12:52:01 atorvastati n 20 mg tablet 2023 024 [facility]/Pharmacy #[id number], [address] [place], [address], 4 12:52:00 amlodipine 5 mg tablet [address]/Pharmacy #[id number], [address] [place], [address], 4 08:49:11 zolpidem 5 mg tablet 2022 023 [id number] [address] [place], [address], 3 09:31:53 amlodipine 2.5 mg tablet [address]/Pharmacy #[id number], [address] [place], [address], 4 10:55:50 Patient TargetsNo targets recorded. Patient Instructions Encounter Date Encounter Id Patient Instructions Last Modified By Organization Details Last Modified Time 09/30/2023 [id number] [facility] Plan and Screening Recommendations Advance Directives - Do you have one? Advance Directives - Do we have your advance directive on file in your health record? Primary Prevention/Interven tion (prevents or decreases the chance of common diseases from occurring) Smoking Risk: Alcohol Misuse Screening: Weight: Physical activity: Nutrition: Fall Risk (screened today): Vaccines Pneumococcal: Influenza: Your next one in the fall of this year Chronic Disease Risks Stroke: I have no recommendations Act dionne diagnosis, Continue current treatment plan Heart Attack: I have no recommendations Act dionne diagnosis, Continue current treatment plan Clogging of the Arteries: I have no recommendations Act dionne diagnosis, Continue current treatment plan Diabetes: Active diagnosis, Continue current treatment plan Secondary Prevention/Interven tion (detects treatable diseases before they may cause symptoms, disability, or ) Breast Cancer Screening with mammogram: Cervical/Uterine/Ov linda Cancer Screening: Osteoporosis Screening: Date Screening Last Performed: Colon Cancer Screening: Date Screening Last Performed: Eye Disease Screening: Dementia Risk: Depression Screening: Active diagnosis, Continue current treatment plan [email or web address] Not available 10/11/2023 08:53:10 Reason for Referral Vascular Surgeon Referral fo r Peripheral vascular disease Please call patient to schedule an appointment. Thank you. Referring Physician: Mercedes Coello, Family Medicine, Encounter Date: 09/30/2023 Results Created Date Observation Date Name Description Value Unit Range Abnormal Flag Note LastModifiedBy Organization Detail LastModifiedTime 09/08/1909/08/2022 VITAM IN B12 (SARAH MARISOL ) vb12 382 pg/mL 239-93 1 Not Available [facility] (Lab) [address] [place], [address], 09/08/2022 22:49:17 09/08/1909/08/2022 VITAM IN D 25-HY DROXY vd25oh 48.7 NG/mL 30-100 Vitam in D Statu s: Defic ient: <20 ng/mL Insuf ficie nt: 20-29 ng/mL Suffi cient : 30-10 0 ng/mL Not Available [facility] (Lab) [address] [place], [address], 09/08/2022 22:06:55 09/08/19 23 09/08/2022 TSH thyroid-stim ulating hormone 0.466 uIU/m L 0.465- 4.680 Not Available [facility] (Lab) [address] [place], [address], 09/08/2022 21:26:08 09/08/19 23 09/08/2022 BASIC METAB OLIC PANEL sodium 134 mmol/ L 137-14 5 low Not Available [facility] (Lab) [address] [place], [address], 09/08/2022 21:10:26 09/08/19 23 09/08/2022 BASIC METAB OLIC PANEL potassium 4.5 mmol/ L 3.5-5. 1 Not Available [facility] (Lab) [address] [place], [address], 09/08/2022 21:10:26 09/08/19 23 09/08/2022 BASIC METAB OLIC PANEL chloride 100 mmol/ L 98-107 Not Available [facility] (Lab) [address] [place], [address], 09/08/2022 21:10:26 09/08/19 23 09/08/2022 BASIC METAB OLIC PANEL carbon dioxide 26 mmol/ L 22-30 Not Available [facility] (Lab) [address] [place], [address], 09/08/2022 21:10:09/08/19 23 09/08/2022 BASIC METAB OLIC PANEL anion gap 12.5 mmol/ L 14-22 low Not Available [facility] (Lab) [address] [place], [address], 09/08/2022 21:10:26 09/08/19 23 09/08/2022 BASIC METAB OLIC PANEL glucose 101 mg/dL 70-99 high Not Available [facility] (Lab) [address] [place], [address], 09/08/2022 21:10:26 09/08/19 23 09/08/2022 BASIC METAB OLIC PANEL BUN 23 mg/dL 8-19 high Not Available [facility] (Lab) [address] [place], [address], 09/08/2022 21:10:26 09/08/19 23 09/08/2022 BASIC METAB OLIC PANEL creatinine 0.86 mg/dL 0.66-1 .25 Not Available [facility] (Lab) [address] [place], [address], 09/08/2022 21:10:26 09/08/19 23 09/08/2022 BASIC METAB OLIC PANEL GFR >60 Refer ence Range : [place] ge GFR Healt hy Adult : >60 mL/mi n/1.7 3 m2 Chron ic Kidne y Disea se: 15-60 mL/mi n/1.7 3 m2 Kidne y Failu re: <15/m L/min /1.73 m2 www.n iddk. nih.g ov The MDRD study equat ion has not been valid ated in child mary <18 years of age; pregn ant women ; the elder ly >85 years of age; or in some racia l or ethni c subgr oups, such as Hispa nics. Outsi de the valid ated tyree eters , estim ated GFR is less accur ate, requi ring clini benita judgm ent on a case- by-ca se basis . Clini benita inter preta tion for other races and ages must be made by the clini james. The MDRD study equat ion has not been valid ated for the evalu ation of serum creat inine relat ed to nutri felicitas l statu s or medic ation usage . For perso ns <18 years of age, a pedia tric GFR calcu lator is avail able on the [facility] websi te: https ://iftikhar w.davis tinsley.o rg/pr lauraess ional s/kdo qi/gf r_cal culat or Not Available [facility] (Lab) [address] [place], [address], 09/08/2022 21:10:26 09/08/1909/08/2022 BASIC METAB OLIC PANEL calcium 10.0 mg/dL 8.4-10 .2 Not Available [facility] (Lab) [address] [place], [address], 09/08/2022 21:10:26 09/08/19 23 09/08/2022 HEPAT IC/LI ZBIGNIEW PANEL alkaline phosphatase 98 U/L 38-126 Not Available [facility] (Lab) [address] [place], [address], 09/08/2022 21:10:23 09/08/19 23 09/08/2022 HEPAT IC/LI ZBIGNIEW PANEL alanine aminotransfe rase 23 U/L 0-35 Not Available [facility] (Lab) [address] [place], [address], 09/08/2022 21:10:23 09/08/19 23 09/08/2022 HEPAT IC/LI ZBIGNIEW PANEL aspartate aminotransfe rase 33 U/L 15-37 Not Available [facility] (Lab) [address] [place], [address], 09/08/2022 21:10:23 09/08/19 23 09/08/2022 HEPAT IC/LI ZBIGNIEW PANEL bilirubin, total 0.60 mg/dL 0.20-1 .30 Not Available [facility] (Lab) [address] [place], [address], 09/08/2022 21:10:23 09/08/19 23 09/08/2022 HEPAT IC/LI ZBIGNIEW PANEL bilirubin, conjugated (direct) 0.00 mg/dL 0.00-0 .30 Not Available [facility] (Lab) [address] [place], [address], 09/08/2022 21:10:23 09/08/19 23 09/08/2022 HEPAT IC/LI ZBIGNIEW PANEL biliurubin,u ncong. (indirect) 0.20 mg/dL 0.00-1 .1 Not Available [facility] (Lab) [address] [place], [address], 09/08/2022 21:10:23 09/08/19 23 09/08/2022 HEPAT IC/LI ZBIGNIEW PANEL total protein 7.2 g/dL 6.3-8. 2 Not Available [facility] (Lab) [address] [place], [address], 09/08/2022 21:10:23 09/08/19 23 09/08/2022 HEPAT IC/LI ZBIGNIEW PANEL albumin 4.5 g/dL 3.0-4. 4 high Not Available [facility] (Lab) [address] [place], [address], 09/08/2022 21:10:23 09/08/19 23 09/08/2022 HEPAT IC/LI ZBIGNIEW PANEL globulin 2.7 g/dL 2.6-4. 2 Not Available [facility] (Lab) [address] [place], [address], 09/08/2022 21:10:23 09/08/19 23 09/08/2022 HEPAT IC/LI ZBIGNIEW PANEL A/G ratio 1.7 ratio 1.0-2. 0 Not Available [facility] (Lab) [address] [place], [address], 09/08/2022 21:10:23 09/08/19 23 09/08/2022 LIPID PANEL cholesterol 214 mg/dL 140-19 9 high NIH SUYAPA NSUS RECOM MENDA TION FOR JANA STERO L: ADULT CHILD LOW RISK: <200 <170 BORDE RLINE : <200- 239 ----- HIGH RISK: >240 >200 Not Available [facility] (Lab) [address] [place], [address], 09/08/2022 21:10:21 09/08/1909/08/2022 LIPID PANEL triglyceride s 111 mg/dL 0-150 NIH SUYAPA NSUS REPOR T RECOM MENDA TION FOR TRIGL YCERI COLE: ADULT CHILD LOW RISK: <150 ----- BODER LINE: 150-1 99 ----- HIGH RISK: >200 ----- Not Available [facility] (Lab) [address] [place] [address], [address], 09/08/2022 21:10:21 09/08/19 23 09/08/2022 LIPID PANEL HDL cholesterol 100 mg/dL 40- Not Available [facility] (Lab) [address] [place], [address], 09/08/2022 21:10:21 09/08/19 23 09/08/2022 LIPID PANEL LDL cholesterol, calculated 92 mg/dL 0-130 NIH SUYAPA NSUS REPOR T RECOM MENDA TIONS FOR LDL: ADULT CHILD LOW RISK <130 <110 (OPTI MAL LDL) <100 ----- BORDE RLINE : 130-1 59 ----- HIGH RISK: >160 >130 A TRIGL YCERI DE RESUL T >400 INVAL IDATE S THE CALCU LATIO N FOR LDL FRACT IONAT ION - THE LDL RESUL T WILL NOT BE REPOR LE. Not Available [facility] (Lab) [address] [place], [address], 09/08/2022 21:10:21 09/08/19 23 09/08/2022 HEMOG LOBIN A1C HA1C 6.0 % 4.0-6. 0 Diabe navin Scree azalia Crite joseph: <5.7% Consi stent with absen ce of diabe navin 5.7-6 .4% Consi stent with incre ased risk for diabe navin (pred iabet es) >OR=6 .5% Consi stent with diabe navin REFER ENCE: Diabe navin Care 2016, 39(Randall ppl.1 ):s13 -s22 Not Available [facility] (Lab) [address] [place], [address], 09/08/2022 20:52:27 09/08/19 23 09/08/2022 CBC/C OMPLE TE BLD COUNT W/DIF F white blood cells 9.9 x10'3 /uL 4.2-10 .8 Not Available [facility] (Lab) [address] [place], [address], 09/08/2022 19:35:22 09/08/19 23 09/08/2022 CBC/C OMPLE TE BLD COUNT W/DIF F red blood cells 4.26 x10'6 /uL 3.80-5 .20 Not Available [facility] (Lab) [address] [place], [address], 09/08/2022 19:35:22 09/08/19 23 09/08/2022 CBC/C OMPLE TE BLD COUNT W/DIF F hemoglobin 13.0 g/dL 12.0-1 5.6 Not Available [facility] (Lab) [address] [place], [address], 09/08/2022 19:35:22 09/08/19 23 09/08/2022 CBC/C OMPLE TE BLD COUNT W/DIF F hematocrit 39.8 % 35.7-4 5.7 Not Available [facility] (Lab) [address] [place], [address], 09/08/2022 19:35:22 09/08/19 23 09/08/2022 CBC/C OMPLE TE BLD COUNT W/DIF F mean red cell volume 93.4 fL 82.0-9 9.0 Not Available [facility] (Lab) [address] [place], [address], 09/08/2022 19:35:22 09/08/19 23 09/08/2022 CBC/C OMPLE TE BLD COUNT W/DIF F mean red cell hemoglobin 30.5 pg 27.0-3 3.0 Not Available [facility] (Lab) [address] [place], [address], 09/08/2022 19:35:22 09/08/19 23 09/08/2022 CBC/C OMPLE TE BLD COUNT W/DIF F mean RBC HGB concentratio n 32.7 g/dL 31.0-3 6.0 Not Available [facility] (Lab) [address] [place], [address], 09/08/2022 19:35:22 09/08/19 23 09/08/2022 CBC/C OMPLE TE BLD COUNT W/DIF F red cell distribution width 13.2 % 11.8-1 5.5 Not Available [facility] (Lab) [address] [place], [address], 09/08/2022 19:35:22 09/08/19 23 09/08/2022 CBC/C OMPLE TE BLD COUNT W/DIF F platelets 375 x10'3 /uL 150-40 0 Not Available [facility] (Lab) [address] [place], [address], 09/08/2022 19:35:22 09/08/19 23 09/08/2022 CBC/C OMPLE TE BLD COUNT W/DIF F mean platelet volume 12.2 fL 9.0-12 .4 Not Available [facility] (Lab) [address] [place], [address], 09/08/2022 19:35:22 09/08/19 23 09/08/2022 CBC/C OMPLE TE BLD COUNT W/DIF F neutrophils 74.0 % 39.0-7 2.0 high Not Available [facility] (Lab) [address] [place], [address], 09/08/2022 19:35:22 09/08/19 23 09/08/2022 CBC/C OMPLE TE BLD COUNT W/DIF F lymphocytes 16.4 % 16.0-4 7.0 Not Available [facility] (Lab) [address] [place], [address], 09/08/2022 19:35:22 09/08/19 23 09/08/2022 CBC/C OMPLE TE BLD COUNT W/DIF F monocytes 5.8 % 5.0-12 .0 Not Available [facility] (Lab) [address] [place], [address], 09/08/2022 19:35:22 09/08/19 23 09/08/2022 CBC/C OMPLE TE BLD COUNT W/DIF F eosinophils 2.9 % 1.0-7. 0 Not Available [facility] (Lab) [address] [place], [address], 09/08/2022 19:35:22 09/08/19 23 09/08/2022 CBC/C OMPLE TE BLD COUNT W/DIF F basophils 0.6 % 0.0-2. 0 Not Available [facility] (Lab) [address] [place], [address], 09/08/2022 19:35:22 09/08/19 23 09/08/2022 CBC/C OMPLE TE BLD COUNT W/DIF F immature granulocytes 0.3 % 0.00-0 .50 Not Available [facility] (Lab) [address] [place], [address], 09/08/2022 19:35:22 09/08/19 23 09/08/2022 CBC/C OMPLE TE BLD COUNT W/DIF F neutrophils, absolute count 7.30 x10'3 /uL 1.5-8. 0 Not Available [facility] (Lab) [address] [place], [address], 09/08/2022 19:35:22 09/08/19 23 09/08/2022 CBC/C OMPLE TE BLD COUNT W/DIF F lymphocytes, absolute count 1.62 x10'3 /uL 1.07-3 .43 Not Available [facility] (Lab) [address] [place], [address], 09/08/2022 19:35:22 09/08/19 23 09/08/2022 CBC/C OMPLE TE BLD COUNT W/DIF F monocytes, absolute count 0.57 x10'3 /uL 0.29-0 .99 Not Available [facility] (Lab) [address] [place], [address], 09/08/2022 19:35:22 09/08/19 23 09/08/2022 CBC/C OMPLE TE BLD COUNT W/DIF F eosinophils, absolute count 0.29 x10'3 /uL 0.02-0 .53 Not Available [facility] (Lab) [address] [place], [address], 09/08/2022 19:35:22 09/08/19 23 09/08/2022 CBC/C OMPLE TE BLD COUNT W/DIF F basophils, absolute count 0.06 x10'3 /uL 0.01-0 .08 Not Available [facility] (Lab) [address] [place], [address], 09/08/2022 19:35:22 09/08/19 23 09/08/2022 CBC/C OMPLE TE BLD COUNT W/DIF F immature granulocytes ,absolute 0.03 x10'3 /uL 0.00-0 .05 Not Available [facility] (Lab) [address] [place], [address], 09/08/2022 19:35:22 09/08/19 23 09/08/2022 CBC/C OMPLE TE BLD COUNT W/DIF F nucleated red blood cells 0.0 % -0 Not Available [facility] (Lab) [address] [place], [address], 09/08/2022 19:35:22 09/08/19 23 09/08/2022 CBC/C OMPLE TE BLD COUNT W/DIF F NRBC# 0.00 x10'3 /uL Not Available [facility] (Lab) [address] [place], [address], 09/08/2022 19:35:22 05/12/20 23 05/12/2023 CBC/C OMPLE TE BLD COUNT W/DIF F white blood cells 9.7 x10'3 /uL 4.2-10 .8 Not Available [facility] (Lab) [address] [facility] [place] [place], [address], 05/12/2023 20:34:00 05/12/20 23 05/12/2023 CBC/C OMPLE TE BLD COUNT W/DIF F red blood cells 4.13 x10'6 /uL 3.80-5 .20 Not Available [facility] (Lab) [address] [facility] [place] [place], [address], 05/12/2023 20:34:00 05/12/2005/12/2023 CBC/C OMPLE TE BLD COUNT W/DIF F hemoglobin 13.1 g/dL 12.0-1 5.6 Not Available [facility] (Lab) [address] [place], [address], 05/12/2023 20:34:00 05/12/2005/12/2023 CBC/C OMPLE TE BLD COUNT W/DIF F hematocrit 40.4 % 35.7-4 5.7 Not Available [facility] (Lab) [address] [place], [address], 05/12/2023 20:34:00 05/12/2005/12/2023 CBC/C OMPLE TE BLD COUNT W/DIF F mean red cell volume 97.8 fL 82.0-9 9.0 Not Available [facility] (Lab) [address] [place], [address], 05/12/2023 20:34:00 05/12/2005/12/2023 CBC/C OMPLE TE BLD COUNT W/DIF F mean red cell hemoglobin 31.7 pg 27.0-3 3.0 Not Available [facility] (Lab) [address] [place], [address], 05/12/2023 20:34:00 05/12/2005/12/2023 CBC/C OMPLE TE BLD COUNT W/DIF F mean RBC HGB concentratio n 32.4 g/dL 31.0-3 6.0 Not Available [facility] (Lab) [address] [place], [address], 05/12/2023 20:34:00 05/12/2005/12/2023 CBC/C OMPLE TE BLD COUNT W/DIF F red cell distribution width 12.9 % 11.8-1 5.5 Not Available [facility] (Lab) [address] [place], [address], 05/12/2023 20:34:00 05/12/2005/12/2023 CBC/C OMPLE TE BLD COUNT W/DIF F platelets 342 x10'3 /uL 150-40 0 Not Available [facility] (Lab) [address] [place], [address], 05/12/2023 20:34:00 05/12/2005/12/2023 CBC/C OMPLE TE BLD COUNT W/DIF F mean platelet volume 12.5 fL 9.0-12 .4 high Not Available [facility] (Lab) [address] [place], [address], 05/12/2023 20:34:00 05/12/2005/12/2023 CBC/C OMPLE TE BLD COUNT W/DIF F neutrophils 64.8 % 39.0-7 2.0 Not Available [facility] (Lab) [address] [place], [address], 05/12/2023 20:34:00 05/12/2005/12/2023 CBC/C OMPLE TE BLD COUNT W/DIF F lymphocytes 24.2 % 16.0-4 7.0 Not Available [facility] (Lab) [address] [place], [address], 05/12/2023 20:34:00 05/12/2005/12/2023 CBC/C OMPLE TE BLD COUNT W/DIF F monocytes 8.1 % 5.0-12 .0 Not Available [facility] (Lab) [address] [place], [address], 05/12/2023 20:34:00 05/12/2005/12/2023 CBC/C OMPLE TE BLD COUNT W/DIF F eosinophils 1.7 % 1.0-7. 0 Not Available [facility] (Lab) [address] [place], [address], 05/12/2023 20:34:00 05/12/2005/12/2023 CBC/C OMPLE TE BLD COUNT W/DIF F basophils 0.6 % 0.0-2. 0 Not Available [facility] (Lab) [address] [place], [address], 05/12/2023 20:34:00 05/12/2005/12/2023 CBC/C OMPLE TE BLD COUNT W/DIF F immature granulocytes 0.6 % 0.00-0 .50 high Not Available [facility] (Lab) [address] [place], [address], 05/12/2023 20:34:00 05/12/2005/12/2023 CBC/C OMPLE TE BLD COUNT W/DIF F neutrophils, absolute count 6.28 x10'3 /uL 1.5-8. 0 Not Available [facility] (Lab) [address] [place], [address], 05/12/2023 20:34:00 05/12/2005/12/2023 CBC/C OMPLE TE BLD COUNT W/DIF F lymphocytes, absolute count 2.34 x10'3 /uL 1.07-3 .43 Not Available [facility] (Lab) [address] [place], [address], 05/12/2023 20:34:00 05/12/20 23 05/12/2023 CBC/C OMPLE TE BLD COUNT W/DIF F monocytes, absolute count 0.78 x10'3 /uL 0.29-0 .99 Not Available [facility] (Lab) [address] [place], [address], 05/12/2023 20:34:00 05/12/20 23 05/12/2023 CBC/C OMPLE TE BLD COUNT W/DIF F eosinophils, absolute count 0.16 x10'3 /uL 0.02-0 .53 Not Available [facility] (Lab) [address] [place], [address], 05/12/2023 20:34:00 05/12/20 23 05/12/2023 CBC/C OMPLE TE BLD COUNT W/DIF F basophils, absolute count 0.06 x10'3 /uL 0.01-0 .08 Not Available [facility] (Lab) [address] [place], [address], 05/12/2023 20:34:00 05/12/20 23 05/12/2023 CBC/C OMPLE TE BLD COUNT W/DIF F immature granulocytes ,absolute 0.06 x10'3 /uL 0.00-0 .05 high Not Available [facility] (Lab) [address] [place], [address], 05/12/2023 20:34:00 05/12/20 23 05/12/2023 CBC/C OMPLE TE BLD COUNT W/DIF F nucleated red blood cells 0.0 % -0 Not Available [facility] (Lab) [address] [place], [address], 05/12/2023 20:34:00 05/12/20 23 05/12/2023 CBC/C OMPLE TE BLD COUNT W/DIF F NRBC# 0.00 x10'3 /uL Not Available [facility] (Lab) [address] [place], [address], 05/12/2023 20:34:00 05/12/20 23 05/12/2023 SEDIM ENTAT ION RATE erythrocyte sedimentatio n rate 17 mm/HR 0-20 Not Available [facility] (Lab) [address] [place], [address], 05/12/2023 21:00:31 05/12/20 23 05/12/2023 TSH thyroid-stim ulating hormone 0.737 uIU/m L 0.465- 4.680 Not Available [facility] (Lab) [address] [place], [address], 05/12/2023 22:43:48 05/12/20 23 05/15/2023 PINA BY IFA RFX TITER /SYMONE CECE antinuclear antibodies, ifa Positi ve abnormal Negat dionne <1:80 Borde rline 1:80 Posit dionne >1:80 Perfo rmed at: - [address], [place] [address] Lab Direc tor: Keegan stock PhD, Phone : [phone] Not Available [facility] (Lab) [address] [place], [address], 05/15/2023 08:18:30 05/12/20 23 05/15/2023 PINA BY IFA RFX TITER /SYMONE CECE homogeneous pattern 1:640 high ICAP nomen clatu re: AC-1 Not Available [facility] (Lab) [address] [place], [address], 05/15/2023 08:18:30 05/12/20 23 05/15/2023 PINA BY IFA RFX TITER /SYMONE CECE midbody pattern 1:640 high ICAP nomen clatu re: AC-27 Not Available [facility] (Lab) [address] [place], [address], 05/15/2023 08:18:30 05/12/20 23 05/15/2023 PINA BY IFA RFX TITER /SYMONE CECE anasp4 Jamal sykes . [facility] iatio n ----- ----- --- ----- ----- ----- ----- ----- ----- ----- ----- ----- Homog eneou s Syste mayda Lupus Eryth emato cordell, Drug Induc ed Syste mayda Lupus Eryth emato cordell, Chron ic Autoi mmune hepat itis, Panfilo ile Idiop athic Arthr itis ----- ----- --- ----- ----- ----- ----- ----- ----- ----- ----- ----- Speck led Sjogr en Syndr ome, Syste mayda Lupus Eryth emato cordell, Subac salma Cutan eous Lupus , Neona jassi Lupus , Conge nital Heart Block , Mixed Conne ctive Tissu e Disea se, Scler oderm a-dif fuse, Scler oderm a-Aut oimmu ne Myosi tis Overl ap Syndr ome, Syste mayda Lupus Eryth emato cordell-S clero derma -Auto immun e Myosi tis Overl ap Syndr ome, Syste mayda Autoi mmune Rheum atic Disea se, John [place] ctive Tissu e Disea se ----- ----- --- ----- ----- ----- ----- ----- ----- ----- ----- ----- Nucle olar Syste mayda Scler osis, Scler oderm a-Aut oimmu ne Myosi tis Overl ap Syndr ome, Sjogr en Syndr ome, Jesenia ud pheno gary , Pulmo nary Arter ial Hyper tensi on, Syste mayda Autoi mmune Rheum atic Disea se, Cance r ----- ----- --- ----- ----- ----- ----- ----- ----- ----- ----- ----- Centr omere Scler oderm a-CRE ST, Limit ed Cutan eous SSc, Jesenia ud's Pheno gary , Prima ry Bilia ry Chola ngiti s ----- ----- --- ----- ----- ----- ----- ----- ----- ----- ----- ----- Nucle ar Dot Prima ry Bilia ry Chola ngiti s ----- ----- --- ----- ----- ----- ----- ----- ----- ----- ----- ----- Nucle ar Prima ry Bilia ry Chola ngiti s, Autoi mmune Membr ane Hepat itis/ Liver disea se, Syste mayda Autoi mmune Rheum atic Disea se, Autoi mmune Cytop enias , Linea r Scler oderm a, Antip hosph olipi d Syndr ome ----- ----- --- ----- ----- ----- ----- ----- ----- ----- ----- ----- Perfo rmed at: [facility] [id number], [place] [address] Lab Direc tor: Keegan stock PhD, Phone : [phone] Not Available [facility] (Lab) [address] [place] [address], [address], 05/15/2023 08:18:30 09/30/19 24 09/30/2023 CBC/C OMPLE TE BLD COUNT W/DIF F white blood cells 8.4 x10'3 /uL 4.2-10 .8 Not Available [facility] (Lab) [address] [place], [address], 09/30/2023 19:42:10 09/30/19 24 09/30/2023 CBC/C OMPLE TE BLD COUNT W/DIF F red blood cells 4.28 x10'6 /uL 3.80-5 .20 Not Available [facility] (Lab) [address] [place], [address], 09/30/2023 19:42:10 09/30/19 24 [id number]|2024-11-23 10:04:00|2024-11-23 10:03:00|XMS_ITS|SHERIF LORD|External Medical Summaries|[id number]|" Clinical Summary Created on: November 23, 2024 Lesly Gregory : 1955 Sex: Female Author Organization [facility] Address [address] [facility] [address] [place] [address] Phone Care Team Providers Care Bilingual Call Center Representative Name Role Phone Mercedes Coello MD Primary Care Provider + Gwen Grant CUSTOMER RETENTION SPECIALIST Unavailable [phone]- [phone] Allergies Active Allergy Reactions Criticality Noted Date [...] Intramuscular 05/12/2019 Influenza, Trivalent, IM (MDV) 05/24/2013 [employer] 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 Gender Identity Not on file Sexual Orientation Straight 07/16/2020 9: 25 AM 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 Obstetrics History Last Filed Vital Signs Vital Sign Reading Time Taken Comments Blood Pressure 132/73 07/21/2024 12:20 PM 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 Pulse 103 07/21/2024 12:20 PM 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 Temperature 36.3 C (97.3 F) 07/21/2024 11:55 AM 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 Respiratory Rate 16 07/21/2024 12:20 PM 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 Oxygen Saturation 100% 07/21/2024 12:20 PM 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 Inhaled Oxygen Concentration - - Weight 74.8 kg (165 lb) 07/21/2024 8:33 AM 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 Height 170.2 cm (5' 7 ) 07/02/2023 10:48 AM 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 Body Mass Index 25.84 07/02/2023 10:48 AM 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 Plan of Treatment Health Maintenance Due Date Last Done Comments Colon Cancer Screening-Colonoscopy 1955 Depression Screening 1955 Hepatitis C Screening 1955 Osteoporosis Screening-Bone Density Scan 1955 Hepatitis B Screening 02/06/1972 DTaP/Tdap/Td Vaccine (1 - Tdap) 11/23/1998 9 Well Visit 65+ 2019 Breast Cancer Screening-Mammogram 10/08/2021 021, 03/13/2016 Covid-19 Vaccine (5 - 2023-2 5 season) 2024 11/04/2021, 04/19/2021, 09/26/2020, Additional history exists Influenza Vaccine (Season Ended) 2025 05/23/2021, 05/14/2020, 05/12/2019, Additional history exists Fall Risk Assessment 07/21/2025 07/21/2024 Pneumococcal vaccine 65+ (3 of 3 - PCV20 or PCV21) 08/21/2025 08/21/2020, 05/13/2017, 04/12/2017 Zoster Vaccine Completed 12/11/2022, 09/09/2022 Medical Devices Implanted Type Area Wood Cut Engraver Device Identifier Shelf Expiration Date Model / Serial / Lot Pac Right: [place] [id number] [facility] [place] [address] MEDICARE [facility] [place] [address] MEDICARE [facility] Advance Directives For more information, please contact: [phone] * Full Code (Latest Code Status on File) Date Activated Date Inactivated Comments 07/21/2024 8:23 AM 07/22/2024 5:07 AM Care Teams Bilingual Call Center Representative Relationship Specialty Start Date End Date Mercedes Coello MD PCP - General 11/11/17 Gwen Grant NP [address] [place] [address] Nurse Practitioner Medical Oncology 07/01/23 "
--- OUTSIDE RECORDS SUMMARY | 2024-11-23 10:04 | XMS_ITS | Encounter Summary ---
Author Organization [facility] Address [address] [place] [address] Phone Care Team Providers Care Reel Film Inspector Name Role Phone Mercedes Coello MD Primary Care Provider + Gwen Grant CO TEACHER Unavailable [phone]- [phone] Encounter Details Date Type Department Care Team [...] on file Legal Sex Female 12:38 AM JUICE STANDARDIZER Gender Identity Not on file Sexual Orientation Straight 07/16/2020 9: 25 AM JUICE STANDARDIZER documented as of this encounter Plan of Treatment Not on file documented as of this encounter Procedures Procedure Name Priority Date/Time Associated Diagnosis Comments SCAN - RADIOLOGY/IMAGING 06/14/2024 documented in this encounter Results * SCAN - RADIOLOGY/IMAGING (06/14/2024) Anatomical Region Laterality Modality Other us Provider Scanning Final Result documented in this encounter Visit Diagnoses Not on filedocumented in this encounter Care Teams Reel Film Inspector Relationship Specialty Start Date End Date Mercedes Coello MD PCP - General 11/11/17 Gwen Grant NP [address] [place] [address] Nurse Practitioner Medical Oncology 07/01/23 documented as of this encounter
--- OUTSIDE RECORDS SUMMARY | 2024-11-23 10:04 | XMS_ITS ---
Author Organization [facility] Address [address] [place] [address] Phone Care Team Providers Care Pc Network Technician Name Role Phone Mercedes Coello MD Primary Care Provider + Gwen Grant VERIFICATION REP Unavailable [phone]- [phone] Active Problems Problem Noted Date Diagnosed Date [...]
--- OUTSIDE RECORDS SUMMARY | 2024-11-23 10:04 | XMS_ITS | Clinical Summary ---
Author Organization [facility] Address [address] [place] [address] Care Team Providers Care Hamper Maker Machine Name Role Phone Mercedes Coello MD Primary Care Provider [phone] Allergies Active Allergy Reactions Criticality Noted Date [...] on file Legal Sex Female 11:16 AM CASH PROCESSING SPECIALIST Gender Identity Not on file Sexual Orientation [...] to [place] [address] MEDICARE [facility] Care Teams Hamper Maker Machine Relationship Specialty Start Date End Date Mercedes Coello MD [address] [place] [address] PCP - General FAMILY PRACTICE 09/04/20
--- OUTSIDE RECORDS SUMMARY | 2024-11-23 10:04 | XMS_ITS | CONTINUITY OF CARE DOCUMENT ---
Author Name yuri welch Address Unknown Organization [facility] Office Address [address] [place] [address] [address] [place] [address] Phone [phone] Care Team Providers Care Visual Arts Teacher Name Role Phone Edwardo SOMMERS, Rishi Unavailable [phone] MONIQUE SOMMERS, SARAH [place] Unavailable [phone] INSURANCE PROVIDERS Payer name Policy type / Coverage type [place] red alliance party ID AARP Eve insurance company [id number] [place] MED[place] Medicare [id number]
--- OUTSIDE RECORDS SUMMARY | 2024-11-23 10:04 | XMS_ITS | Clinical Summary ---
Author Organization [facility] Address [address] [place] [address] Phone Care Team Providers Care Optometric Technologist Name Role Phone Mercedes Coello MD Primary [...] exams dated: 02/22/2015, 11/23/2013, and 09/16/2012 [facility]. BREAST TISSUE:There are scattered fibroglandular densities in [...] exam. Electronically signed by: Summer spencer/sada:03/13/2016 16:35:18 Gore Maker: Laisha Jernigan(Justin), [facility] letter sent: Normal Exam Reading location: [facility] BI-RADS: 2 Benign Procedure Note Summer Ponce [...] exams dated: 02/22/2015, 11/23/2013, and 09/16/2012 [facility]. BREAST TISSUE:There are scattered fibroglandular densities in [...] exam. Electronically signed by: Summer spencer/sada:03/13/2016 16:35:18 Gore Maker: Laisha Jernigan(R), [facility] letter sent: Normal Exam Reading location: [facility] BI-RADS: 2 Benign Archana Franklin MD IMG MAMMO ORDERABLES Final Result from Last 3 Months or Most Recently Relevant to Health Maintenance Care Teams Optometric Technologist Relationship Specialty Start Date End Date Mercedes Coello MD [address] [place] [address] PCP - General Family Medicine 03/13/16
--- NOTE | 2024-11-23 12:00 | NEURO_ITS ---
Impression: # Complains of numbness of hands. History of arthritis. # Mild bilateral Carpal Tunnel Syndrome. # Bilateral ulnar neuropathy across the elbows. # Normal needle/EMG exam. Nerve Conduction Studies Anti Sensory Summary Table Stim Site NR Peak (ms) P-T Amp (µV) Site1 Site2 Delta-P (ms) Dist (cm) Eliecer (m/s) Left Median Anti Sensory (2-3nd Digit) Wrist 3.9 77.4 Wrist 2-3nd Digit 3.9 14.0 36 Wrist 4.1 39.8 Wrist 2-3nd Digit 3.9 14.0 36 Right Median Anti Sensory (2-3nd Digit) Wrist 4.1 53.6 Wrist 2-3nd Digit 4.1 14.0 34 Wrist 4.3 38.2 Wrist 2-3nd Digit 4.1 14.0 34 Left Radial Anti Sensory (Base 1st Digit) Wrist 2.8 29.5 Wrist Base 1st Digit 2.8 0.0 Right Radial Anti Sensory (Base 1st Digit) Wrist 3.3 36.0 Wrist Base 1st Digit 3.3 0.0 Left Ulnar Anti Sensory (5th Digit) Wrist 3.3 51.9 Wrist 5th Digit 3.3 14.0 42 Right Ulnar Anti Sensory (5th Digit) Wrist 3.3 44.3 Wrist 5th Digit 3.3 14.0 42 Motor Summary Table Stim Site NR Onset (ms) O-P Amp (mV) Site1 Site2 Delta-0 (ms) Dist (cm) Eliecer (m/s) Left Median Motor (Abd Poll Brev) Wrist 4.0 3.9 Elbow Wrist 4.8 29.0 60 Elbow 8.8 6.6 Right Median Motor (Abd Poll Brev) Wrist 4.3 2.4 Elbow Wrist 5.3 31.0 58 Elbow 9.6 5.1 Left Ulnar Motor (Abd Dig Minimi) Wrist 2.4 4.3 A Elbow Wrist 6.3 29.0 46 A Elbow 8.7 4.1 B Elbow Wrist 4.1 23.0 56 B Elbow 6.5 4.4 Right Ulnar Motor (Abd Dig Minimi) Wrist 2.8 7.8 A Elbow Wrist 6.0 30.0 50 A Elbow 8.8 7.7 B Elbow Wrist 4.1 24.0 59 B Elbow 6.9 7.5 F Wave Studies NR F-Lat (ms) L-R F-Lat (ms) Left Median (Mrkrs) (Abd Poll Brev) 30.39 2.95 Right Median (Mrkrs) (Abd Poll Brev) 33.34 2.95 Left Ulnar (Mrkrs) (Abd Dig Min) 31.50 0.67 Right Ulnar (Mrkrs) (Abd Dig Min) 32.16 0.67 EMG Side Muscle Nerve Root Ins Act Fibs Amp Dur Recrt Comment Right 1stDorInt Ulnar C8-T1 Nml Nml Nml Nml Nml Right Ext Indicis Radial (Post Int) C7-8 Nml Nml Nml Nml Nml Right Ext Digitorum Radial (Post Int) C7-8 Nml Nml Nml Nml Nml Right BrachioRad Radial C5-6 Nml Nml Nml Nml Nml Right PronatorTeres Median C6-7 Nml Nml Nml Nml Nml Right Abd Poll Brev Median C8-T1 Nml Nml Nml Nml Nml Right ABD Dig Min Ulnar C8-T1 Nml Nml Nml Nml Nml Right FlexPolLong Median (Ant Int) C7-8 Nml Nml Nml Nml Nml Right Abd Poll Long Radial (Post Int) C7-8 Nml Nml Nml Nml Nml Left 1stDorInt Ulnar C8-T1 Nml Nml Nml Nml Nml Left Ext Indicis Radial (Post Int) C7-8 Nml Nml Nml Nml Nml Left Ext Digitorum Radial (Post Int) C7-8 Nml Nml Nml Nml Nml Left BrachioRad Radial C5-6 Nml Nml Nml Nml Nml Left PronatorTeres Median C6-7 Nml Nml Nml Nml Nml Left Abd Poll Brev Median C8-T1 Nml Nml Nml Nml Nml Left ABD Dig Min Ulnar C8-T1 Nml Nml Nml Nml Nml Left FlexPolLong Median (Ant Int) C7-8 Nml Nml Nml Nml Nml Left Abd Poll Long Radial (Post Int) C7-8 Nml Nml Nml Nml Nml MTDD
== END 2024-11-23 09:47 | disposition home or self-care (01) ==
PROVIDERS: PCP Internal Medicine; Visit Provider Internal Medicine
DX: G56.03 Carpal tunnel syndrome, bilateral upper limbs (principal); G56.23 Lesion of ulnar nerve, bilateral upper limbs
CPT/HCPCS: 95886; 95911

== ENCOUNTER 2025-02-27 07:38 | Outpatient (CLI) | payer MEDICARE, SELFPAY ==
--- OUTSIDE RECORDS SUMMARY | 2025-02-27 07:44 | XMS_ITS ---
Author Organization [facility] Address [address] [place] [address] Phone Care Team Providers Care Production Pattern Maker Name Role Phone eMrcedes Coello MD Primary Care Provider + Gwen Grant CHIEF ENTERPRISE ARCHITECT Unavailable [phone] Active Problems Problem Noted Date Diagnosed Date [...]
--- OUTSIDE RECORDS SUMMARY | 2025-02-27 07:44 | XMS_ITS | Clinical Summary ---
Author Organization [facility] Address [address] [place] [address] Phone Care Team Providers Care Naturalization Examiner Name Role Phone Mercedes Coello MD Primary [...] Health Maintenance Due Date Last Done Comments Hepatitis C Virus (HCV) Screening 1955 TdaP Immunization 1955 Cologuard 1999 Colonoscopy 1999 Colorectal Cancer Screening 1999 Immunochemical Fecal Occult Blood 1999 Pneumococcal Immunization (5 0+ years) (1 of 1 - PCV) 02/06/2004 Zoster Immunization (1 of 2) 02/06/2004 SARS-COV-2 Immunization ( - season) 2024 Influenza Immunization (#1) 2025 Respiratory Syncytial Virus (RSV) Immunization (Adult) (1 - 1-dose 75+ series) 2029 Mammogram Discontinued 03/13/2016 Hepatitis B Immunization Aged Out No longer eligible based on patient's age to complete this topic Human Papillomavirus (HPV) Immunization Aged Out No longer eligible b ased [...] to exams dated: 02/22/2015, 11/23/2013, and 09/16/2012 [facility]. BREAST TISSUE:There are scattered fibroglandular densities in [...] exam. Electronically signed by: Summer spencer/sada:03/13/2016 16:35:18 Stagecraft Professor: Laisha Jernigan(Justin), [facility] letter sent: Normal Exam Reading location: [facility] BI-RADS: 2 Benign Procedure Note Summer Ponce [...] to exams dated: 02/22/2015, 11/23/2013, and 09/16/2012 [facility]. BREAST TISSUE:There are scattered fibroglandular densities in [...] exam. Electronically signed by: Summer spencer/sada:03/13/2016 16:35:18 Stagecraft Professor: Laisha Jernigan(R), [facility] letter sent: Normal Exam Reading location: [facility] BI-RADS: 2 Benign us Archana Franklin MD IMG MAMMO ORDERABLES Final Result from Last 3 Months or Most Recently Relevant to Health Maintenance Care Teams Naturalization Examiner Relationship Specialty Start Date End Date Mercedes Coello MD [address] [place] [address] PCP - General Family Medicine 03/13/16
--- OUTSIDE RECORDS SUMMARY | 2025-02-27 07:44 | XMS_ITS | Clinical Summary ---
Author Organization [facility] Address [address] [place] [address] Phone Care Team Providers Care Truck Bracer Name Role Phone Mercedes Coello MD Primary Care Provider + Gwen Grant CHINA PAINTER Unavailable [phone]- [phone] Allergies Active Allergy Reactions Criticality Noted Date [...] tubal ligation THYROIDECTOMY 07/13/2007 - 07/12/2008 Thyroidectomy [place] COLONOSCOPY FLX DX W/COLLJ SPEC WHEN PFRMD [...] on file Legal Sex Female 12:38 AM INTERNAL CONTROL CONSULTANT Gender Identity Not on file Sexual Orientation Straight 07/16/2020 9: 25 AM INTERNAL CONTROL CONSULTANT Obstetrics History Last Filed Vital Signs Vital Sign Reading Time Taken Comments Blood Pressure 132/73 07/21/2024 12:20 PM INTERNAL CONTROL CONSULTANT Pulse 103 07/21/2024 12:20 PM INTERNAL CONTROL CONSULTANT Temperature 36.3 C (97.3 F) 07/21/2024 11:55 AM INTERNAL CONTROL CONSULTANT Respiratory Rate 16 07/21/2024 12:20 PM INTERNAL CONTROL CONSULTANT Oxygen Saturation 100% 07/21/2024 12:20 PM INTERNAL CONTROL CONSULTANT Inhaled Oxygen Concentration - - Weight 74.8 kg (165 lb) 07/21/2024 8:33 AM INTERNAL CONTROL CONSULTANT Height 170.2 cm (5' 7) 07/02/2023 10:48 AM INTERNAL CONTROL CONSULTANT Body Mass Index 25.84 07/02/2023 10:48 AM INTERNAL CONTROL CONSULTANT Plan of Treatment Health Maintenance Due Date [...] 09/26/2020, Additional history exists Influenza Vaccine (#1) 2025 , 05/14/2020, 05/12/2019, Additional history exists Fall Risk Assessment 07/21/2025 07/21/2024 Pneumococcal vaccine 65+ (3 of 3 - PCV20 or PCV21) 08/21/2025 08/21/2020, 05/13/2017, 04/12/2017 Zoster Vaccine Completed 12/11/2022, 09/09/2022 Medical Devices Implanted Type Area Door Hanger Device Identifier Shelf Expiration Date Model / Serial / Lot Pac Right: [place] [address] [facility] [place] [address] MEDICARE [facility] [place] [address] MEDICARE [facility] Member Subscriber Plan / Payer ( fective 2019-Present) Name:Lesly Gregory Relation to Subscriber:Self Name:Lelsy Gregory Payer ID:[id number] Group ID:Not on file Type:COMMERCIAL Address: [id number] [place] [id number] Advance Directives For more information, please contact: [phone] * Full Code (Latest Code Status on File) Date Activated Date Inactivated Comments 07/21/2024 8:23 AM 07/22/2024 5:07 AM Care Teams Truck Bracer Relationship Specialty Start Date End Date Mercedes Coello MD PCP - General 11/11/17 Gwen Grant NP [address] [place] [address] Nurse Practitioner Medical Oncology 07/01/23
--- OUTSIDE RECORDS SUMMARY | 2025-02-27 07:46 | XMS_ITS | Encounter Summary ---
Author Organization [facility] Address [address] [place] [address] Phone Care Team Providers Care Park Worker Name Role Phone Mercedes Coello MD Primary Care Provider + Gwen Grant BUSINESS CONTINUITY DIRECTOR Unavailable [phone]- [phone] Encounter Details Date Type Department Care Team [...] on file Legal Sex Female 12:38 AM SALES SERVICE MANAGER Gender Identity Not on file Sexual Orientation Straight 07/16/2020 9: 25 AM SALES SERVICE MANAGER documented as of this encounter Plan of Treatment Not on file documented as of this encounter Procedures Procedure Name Priority Date/Time Associated Diagnosis Comments SCAN - RADIOLOGY/IMAGING 06/14/2024 documented in this encounter Results * SCAN - RADIOLOGY/IMAGING (06/14/2024) Anatomical Region Laterality Modality Other us Provider Scanning Final Result documented in this encounter Visit Diagnoses Not on filedocumented in this encounter Care Teams Park Worker Relationship Specialty Start Date End Date Mercedes Coello MD PCP - General 11/11/17 Gwen Grant NP [address] [place] [address] Nurse Practitioner Medical Oncology 07/01/23 documented as of this encounter
--- OUTSIDE RECORDS SUMMARY | 2025-02-27 07:46 | XMS_ITS | Clinical Summary ---
Author Organization [facility] [employer] Address [address] [place] [address] Care Team Providers Care Music Arranger Name Role Phone Archana Franklin MD Primary Care Provider + Source Comments [facility],non-owned Affiliates and Associated Physician Practices is amultiple site organization consisting of ambulatory clinics and hospital sitesin [place], [place], [place] and [place]. This disclosure is being madepursuant to the Care Everywhere program and may not contain all information available regarding this patient. Last updated 18.[facility] [employer] Social History Tobacco Use Types Packs/Day Years Used Date Smoking Tobacco: Never Assessed Comments Unknown Sex and Gender Information Value Date Recorded Sex Assigned at Not on file Legal Sex Female 6:46 AM STORAGE FACILITY HOUSEKEEPER Gender Identity Not on file Sexual Orientation [...] VACCINE (1 of 2) 02/06/2004 COVID-19 VACCINE (1 - 2023-2 5 season) 2024 DEPRESSION SCREENING 07/13/2024 INFLUENZA VACCINE (#1) 2025 Respiratory Syncytial Virus (RSV) Vaccine Pt: [...] to complete this topic [place] [address] [facility] [employer] Care Teams Music Arranger Relationship Specialty Start Date End Date Archana Franklin MD [address] [place] [address] PCP - General 04/17/20
[2025-02-27 07:59] LABS: Add Urine Microscopic? NO; Appearance Urine Clear (Clear); Glucose Urine UA Negative (Negative); Leukocyte Esterase Ur Negative LEU/UL (Negative); Nitrate Urine Negative (Negative); Specific Grav Ur 1.020 (1.010-1.020)
[2025-02-27 08:00] LABS: Hematocrit 39.7 % (35.0-42.0); Hemoglobin 12.8 g/dL (11.7-13.8); Immature Granulocyte Percent A 0.7 % (0.0-0.0); Lymphocytes Absolute Auto 1.25 K/mm3 (1.10-4.50); Mean Corpuscular HGB Conc 32.2 g/dL (32-36); Mean Corpuscular Hemoglobin 30.3 pg (27.0-31.0); Mean Corpuscular Volume 93.9 fL (78.0-102.0); Nucleated Red Blood Cells Absolute Auto 0.00 K/mm3 (0.00-0.00); Nucleated Red Blood Cells Perc 0.0 % (0-0.0); Platelet Count Result 344 K/mm3 (150-420); Red Blood Count 4.23 M/mm3 (4.20-5.40); White Blood Count 8.6 K/mm3 (4.8-10.8)
[2025-02-27 08:53] LABS: Alanine Aminotransferase 16 U/L (6-35); Albumin Level 4.3 g/dL (3.5-5.1); Alkaline Phosphatase 69 U/L (38-126); Anion Gap 7 mmol/L (4-12); Aspartate Amino Transferase 29 U/L (14-36); Bilirubin,Total 0.6 mg/dL (0.2-1.3); Blood Urea Nitrogen 15 mg/dL (7-17); CRP 0.5 mg/dL (<1.0); Calcium 10.0 mg/dL (8.4-10.2); Carbon Dioxide 28 mmol/L (22-30); Chloride 107 mmol/L (98-107); Cholesterol 189 mg/dL (0-200); Creatine Kinase 47 U/L (30-135); Estimated Glomerular Filt Rate > 60; Glucose 96 mg/dL (65-110); Osmolality Calculated 294 mOsm/kg (285-295); Potassium 4.6 mmol/L (3.4-5.0); Sodium 142 mmol/L (137-145); Total Protein 6.7 g/dL (6.3-8.2); Triglycerides 68 mg/dL (<150)
[2025-02-27 09:03] LABS: Hemoglobin A1C 5.7 % (<5.7)
[2025-02-27 09:11] LABS: Free T4 Free Thyroxine 1.13 ng/dL (0.78-2.19)
[2025-02-27 09:13] LABS: Free T3 5.32 pg/mL (2.18-3.98)
[2025-02-27 09:25] LABS: Thyroid Stimulating Hormone 0.414 uIU/mL (0.465-4.680)
[2025-02-27 09:44] LABS: Vitamin B12 499.0 pg/mL (239-931)
[2025-02-27 10:13] LABS: HDL Direct 84 mg/dL
[2025-02-28 18:08] LABS: ANA by IFA Rfx Titer/Pattern Positive (.)
== END 2025-02-27 07:39 | disposition home or self-care (01) ==
LOC: CHSLAB 07:41
PROVIDERS: PCP Internal Medicine; Visit Provider Internal Medicine
DX: E78.00 Pure hypercholesterolemia, unspecified (principal); N39.0 Urinary tract infection, site not specified; I10 Essential (primary) hypertension; M81.0 Age-related osteoporosis without current pathological fracture; R73.01 Impaired fasting glucose; D51.9 Vitamin B12 deficiency anemia, unspecified; E03.4 Atrophy of thyroid (acquired); I73.00 Raynaud's syndrome without gangrene; G62.9 Polyneuropathy, unspecified
CPT/HCPCS: 36415; 80053; 80061; 81003; 82306; 82550; 82607; 83036; 84439; 84443; 84481; 85025; 85652; 86038; 86140

== ENCOUNTER 2025-03-14 11:37 | Outpatient (CLI) | payer MEDICARE, SELFPAY ==
--- OUTSIDE RECORDS SUMMARY | 2025-03-14 12:01 | XMS_ITS ---
Author Organization [facility] Address [address] [place] [address] Phone Care Team Providers Care Tomb Maker Helper Name Role Phone Mercedes Coello MD Primary Care Provider + Gwen Grant HIDES SOAKER Unavailable +1- [phone] Active Problems Problem Noted Date Diagnosed Date [...]
--- OUTSIDE RECORDS SUMMARY | 2025-03-14 12:01 | XMS_ITS | Encounter Summary ---
Author Organization [facility] [employer] [facility] Address [address] [place] [address] Phone Care Team Providers Care Qualification Engineer Name Role Phone Mercedes Coello MD Primary Care Provider + Gwen Grant TOP LIFT SCOURER Unavailable [phone]- [phone] Encounter Details Date Type Department Care Team [...] on file Legal Sex Female 12:38 AM UROLOGIC NURSE Gender Identity Not on file Sexual Orientation Straight 07/16/2020 9: 25 AM UROLOGIC NURSE documented as of this encounter Plan of Treatment Not on file documented as of this encounter Procedures Procedure Name Priority Date/Time Associated Diagnosis Comments SCAN - RADIOLOGY/IMAGING 06/14/2024 documented in this encounter Results * SCAN - RADIOLOGY/IMAGING (06/14/2024) Anatomical Region Laterality Modality Other us Provider Scanning Final Result documented in this encounter Visit Diagnoses Not on filedocumented in this encounter Care Teams Qualification Engineer Relationship Specialty Start Date End Date Mercedes Coello MD PCP - General 11/11/17 Gwen Grant NP [address] [place] [address] Nurse Practitioner Medical Oncology 07/01/23 documented as of this encounter
--- OUTSIDE RECORDS SUMMARY | 2025-03-14 12:01 | XMS_ITS | Clinical Summary ---
Author Organization [facility] [employer] Address [address] [address] Care Team Providers Care Membership Secretary Name Role Phone Archana Franklin MD Primary Care Provider + Source Comments [facility],non-owned Affiliates and Associated Physician Practices is amultiple site organization consisting of ambulatory clinics and hospital sitesin [place], [place]. This disclosure is being madepursuant to the Care Everywhere program and may not contain all information available regarding this patient. Last updated 18.[facility] Social History Tobacco Use Types Packs/Day Years Used Date Smoking Tobacco: Never Assessed Comments Unknown Sex and Gender Information Value Date Recorded Sex Assigned at Not on file Legal Sex Female 6:46 AM SUPERVISOR PROPERTIES Gender Identity Not on file Sexual Orientation [...] to complete this topic Insurance [place] [address] [facility] [employer] Care Teams Membership Secretary Relationship Specialty Start Date End Date Archana Franklin MD [address] [place] [address] PCP - General 04/17/20
--- OUTSIDE RECORDS SUMMARY | 2025-03-14 12:01 | XMS_ITS | Clinical Summary ---
Author Organization [facility] Address [address] [place] [address] Phone Care Team Providers Care Technical Architect Name Role Phone Mercedes Coello MD Primary [...] to exams dated: 02/22/2015, 11/23/2013, and 09/16/2012 [facility]. BREAST TISSUE:There are scattered fibroglandular densities in [...] exam. Electronically signed by: Summer spencer/sada:03/13/2016 16:35:18 Pharmacist In Charge: Laisha Jernigan(Justin), [facility] letter sent: Normal Exam Reading location: [facility] BI-RADS: 2 Benign Procedure Note Summer [...] to exams dated: 02/22/2015, 11/23/2013, and 09/16/2012 [facility]. BREAST TISSUE:There are scattered fibroglandular densities in [...] exam. Electronically signed by: Summer spencer/sada:03/13/2016 16:35:18 Pharmacist In Charge: Laisha Jernigan(R), [facility] letter sent: Normal Exam Reading location: [facility] BI-RADS: 2 Benign us Archana Franklin MD IMG MAMMO ORDERABLES Final Result from Last 3 Months or Most Recently Relevant to Health Maintenance Care Teams Technical Architect Relationship Specialty Start Date End Date Mercedes Coello MD [address] [place] [address] PCP - General Family Medicine 03/13/16
--- OUTSIDE RECORDS SUMMARY | 2025-03-14 12:01 | XMS_ITS | Clinical Summary ---
Author Organization [facility] [employer] of [facility] Address [address] [place] [address] Phone Care Team Providers Care Press Operator Carbon Blocks Name Role Phone Mercedes Coello MD Primary Care Provider + Gwen Grant FOREIGN CORRESPONDENT Unavailable +1- [phone] Allergies Active Allergy Reactions Criticality Noted Date [...] tubal ligation THYROIDECTOMY 07/13/2007 - 07/12/2008 Thyroidectomy [place] COLONOSCOPY FLX DX W/COLLJ SPEC WHEN PFRMD [...] on file Legal Sex Female 12:38 AM DRAIN TILE PRESS OPERATOR Gender Identity Not on file Sexual Orientation Straight 07/16/2020 9: 25 AM DRAIN TILE PRESS OPERATOR Obstetrics History Last Filed Vital Signs Vital Sign Reading Time Taken Comments Blood Pressure 132/73 07/21/2024 12:20 PM DRAIN TILE PRESS OPERATOR Pulse 103 07/21/2024 12:20 PM DRAIN TILE PRESS OPERATOR Temperature 36.3 C (97.3 F) 07/21/2024 11:55 AM DRAIN TILE PRESS OPERATOR Respiratory Rate 16 07/21/2024 12:20 PM DRAIN TILE PRESS OPERATOR Oxygen Saturation 100% 07/21/2024 12:20 PM DRAIN TILE PRESS OPERATOR Inhaled Oxygen Concentration - - Weight 74.8 kg (165 lb) 07/21/2024 8:33 AM DRAIN TILE PRESS OPERATOR Height 170.2 cm (5' 7) 07/02/2023 10:48 AM DRAIN TILE PRESS OPERATOR Body Mass Index 25.84 07/02/2023 10:48 AM DRAIN TILE PRESS OPERATOR Plan of Treatment Health Maintenance Due Date [...] 12/11/2022, 09/09/2022 Medical Devices Implanted Type Area Nightclub Manager Device Identifier Shelf Expiration Date Model / Serial / Lot [place]: [place] [address] [facility] [place] [address] [facility] [place] [address] MEDICARE [facility] Member Subscriber Plan / Payer ( fective 2019-Present) Name:Lesly Gregory Relation to Subscriber:Self Name:Lesly Gregory Payer ID:[id number] Group ID:Not on file Type:COMMERCIAL Address: [address] [place] [phone] Advance Directives For more information, please contact: [phone] * Full Code (Latest Code Status on File) Date Activated Date Inactivated Comments 07/21/2024 8:23 AM 07/22/2024 5:07 AM Care Teams Press Operator Carbon Blocks Relationship Specialty Start Date End Date Mercedes Coello MD PCP - General 11/11/17 Gwen Grant NP [address] [place] [address] Nurse Practitioner Medical Oncology 07/01/23
--- OUTSIDE RECORDS SUMMARY | 2025-03-14 12:01 | XMS_ITS | Clinical Summary ---
Author Organization [facility] Address [address] [place] [address] Care Team Providers Care Investigator Cash Shortage Name Role Phone Mercedes Coello MD Primary Care Provider [phone] Allergies Active Allergy Reactions Criticality Noted Date [...] on file Legal Sex Female 11:16 AM MILK BOTTLING MACHINE OPERATOR Gender Identity Not on file Sexual Orientation Not on file Last Filed Vital Signs Vital Sign Reading Time Taken Comments Blood Pressure 132/70 09/24/2020 9:04 AM CDT Pulse 95 09/24/2020 9:04 AM CDT Temperature - - Respiratory Rate - - Oxygen Saturation - - Inhaled Oxygen Concentration - - Weight 79.8 kg (176 lb) 09/24/2020 9:04 AM CDT Height 170.2 cm (5' 7) 09/24/2020 9:04 AM CDT Body Mass Index [...] to [place] [address] MEDICARE [facility] Care Teams Investigator Cash Shortage Relationship Specialty Start Date End Date Mercedes Coello MD [address] [place] [address] PCP - General FAMILY PRACTICE 09/04/20
== END 2025-03-14 11:38 | disposition home or self-care (01) ==
LOC: CHSLAB 11:39
PROVIDERS: PCP Internal Medicine; Visit Provider Internal Medicine
DX: E05.90 Thyrotoxicosis, unspecified without thyrotoxic crisis or storm (principal)
CPT/HCPCS: 83520

== ENCOUNTER 2025-03-17 10:48 | Outpatient (CLI) | payer MEDICARE, SELFPAY ==
--- NOTE | ~2025-03-17 | US_ITS ---
CORRECTED REPORT corrected ordering doctor to MD HAILY Juárez 03/28/25 This report was recreated on 03/28/25. Original report was EXAMINATION: US thyroid DATE: 03/17/2025 11:11 INDICATION: Hypothyroidism TECHNIQUE: Multiple ultrasound images of the thyroid were obtained. COMPARISON: 11/06/2023 FINDINGS: The right thyroid lobe measures 6.0 x 4.4 x 3.6 cm. The left thyroid lobe is not visualized and reportedly surgically absent. The thyroid isthmus measures 7 mm in thickness. Interval increase in size of a 1.8 cm mixed solid and cystic nodule in the left thyroid lobe with hypoechoic solid component, smooth margins but with internal echogenic foci (TI-RADS 4, moderately suspicious , FNA if >=1.5 cm, annual followup is >=1 cm). There is a second 1.4 cm mixed solid and cystic nodule with isoechoic solid component, ill-defined and lobular margins and without echogenic foci also TI RADS 4. There are a couple subcentimeter solid hypoechoic wider than tall TI RADS 4 nodules with smooth margins and the cephalad right thyroid lobe, the largest measuring 8 mm maximal diameter. There are also a few scattered echogenic and shadowing coarse calcifications in the right thyroid lobe. IMPRESSION: 1. A few right thyroid nodules with interval increase in size of a now 1.8 cm TI RADS 4 right thyroid nodule for which ultrasound-guided biopsy would be recommended. 2. Status post left hemithyroidectomy. Reviewed, dictated and finalized at location A. IMPRESSION: 1. A few right thyroid nodules with interval increase in size of a now 1.8 cm T I RADS 4 right thyroid nodule for which ultrasound-guided biopsy would be recom mended. 2. Status post left hemithyroidectomy.
--- OUTSIDE RECORDS SUMMARY | 2025-03-17 11:19 | XMS_ITS ---
Author Organization [facility] [employer] [facility] Address [address] [place] [address] Phone Care Team Providers Care Information Systems Operator Name Role Phone Mercedes Coello MD Primary Care Provider + Gwen Grant INDUSTRIAL RELATIONS REPRESENTATIVE Unavailable +1- [phone] Active Problems Problem Noted Date Diagnosed Date [...]
--- OUTSIDE RECORDS SUMMARY | 2025-03-17 11:19 | XMS_ITS | Clinical Summary ---
Author Organization [facility] [employer] [facility] Address [address] [place] [address] Phone Care Team Providers Care Lace Sewer Name Role Phone Mercedes Coello MD Primary Care Provider + Gwen Grant WINDSURFING INSTRUCTOR Unavailable +1- [phone] Allergies Active Allergy Reactions Criticality Noted Date [...] tubal ligation THYROIDECTOMY 07/13/2007 - 07/12/2008 Thyroidectomy [place] COLONOSCOPY FLX DX W/COLLJ SPEC WHEN PFRMD [...] on file Legal Sex Female 12:38 AM DYE BLENDER Gender Identity Not on file Sexual Orientation Straight 07/16/2020 9: 25 AM DYE BLENDER Obstetrics History Last Filed Vital Signs Vital Sign Reading Time Taken Comments Blood Pressure 132/73 07/21/2024 12:20 PM DYE BLENDER Pulse 103 07/21/2024 12:20 PM DYE BLENDER Temperature 36.3 C (97.3 F) 07/21/2024 11:55 AM DYE BLENDER Respiratory Rate 16 07/21/2024 12:20 PM DYE BLENDER Oxygen Saturation 100% 07/21/2024 12:20 PM DYE BLENDER Inhaled Oxygen Concentration - - Weight 74.8 kg (165 lb) 07/21/2024 8:33 AM DYE BLENDER Height 170.2 cm (5' 7) 07/02/2023 10:48 AM DYE BLENDER Body Mass Index 25.84 07/02/2023 10:48 AM DYE BLENDER Plan of Treatment Health Maintenance Due Date [...] 12/11/2022, 09/09/2022 Medical Devices Implanted Type Area Diet Consultant Device Identifier Shelf Expiration Date Model / Serial / Lot Pac Right: [place] [address] [facility] [place] [address] [facility] [address] [facility] Member Subscriber Plan / Payer ( fective 2019-Present) Name:Lesly Gregory Relation to Subscriber:Self Name:Lesly Gregory Payer ID:[id number] Group ID:Not on file Type:COMMERCIAL Address: [address] [place] [id number] Advance Directives For more information, please contact: [phone] * Full Code (Latest Code Status on File) Date Activated Date Inactivated Comments 07/21/2024 8:23 AM 07/22/2024 5:07 AM Care Teams Lace Sewer Relationship Specialty Start Date End Date Mercedes Coello MD PCP - General 11/11/17 Gwen Grant NP [address] [place] [address] Nurse Practitioner Medical Oncology 07/01/23
--- OUTSIDE RECORDS SUMMARY | 2025-03-17 11:19 | XMS_ITS | Encounter Summary ---
Author Organization [facility] [employer] [facility] Address [address] [place] [address] Phone Care Team Providers Care Chucker Name Role Phone Mercedes Coello MD Primary Care Provider + Gwen Grant DIRECTOR CONSUMER AFFAIRS Unavailable [phone]- [phone] Encounter Details Date Type Department Care Team [...] on file Legal Sex Female 12:38 AM FIRE EXTINGUISHER MECHANIC Gender Identity Not on file Sexual Orientation Straight 07/16/2020 9: 25 AM FIRE EXTINGUISHER MECHANIC documented as of this encounter Plan of Treatment Not on file documented as of this encounter Procedures Procedure Name Priority Date/Time Associated Diagnosis Comments SCAN - RADIOLOGY/IMAGING 06/14/2024 documented in this encounter Results * SCAN - RADIOLOGY/IMAGING (06/14/2024) Anatomical Region Laterality Modality Other us Provider Scanning Final Result documented in this encounter Visit Diagnoses Not on filedocumented in this encounter Care Teams Chucker Relationship Specialty Start Date End Date Mercedes Coello MD PCP - General 11/11/17 Gwen Grant NP [address] [place] [address] Nurse Practitioner Medical Oncology 07/01/23 documented as of this encounter
--- OUTSIDE RECORDS SUMMARY | 2025-03-17 11:19 | XMS_ITS | Clinical Summary ---
Author Organization [facility] [employer] Address [address] [place] [address] Care Team Providers Care Marketing Communications Specialist Name Role Phone Archana Franklin MD Primary Care Provider + Source Comments [facility],non-owned Affiliates and Associated Physician Practices is amultiple site organization consisting of ambulatory clinics and hospital sitesin [place], [place], [place] and [place]. This disclosure is being madepursuant to the Care Everywhere program and may not contain all information available regarding this patient. Last updated 18.[facility] [employer] Social History Tobacco Use Types Packs/Day Years Used Date Smoking Tobacco: Never Assessed Comments Unknown Sex and Gender Information Value Date Recorded Sex Assigned at Not on file Legal Sex Female 6:46 AM DISPLAY DESIGNER OUTSIDE Gender Identity Not on file Sexual Orientation [...] 02/06/2004 ZOSTER VACCINE (1 of 2) 02/06/2004 DEPRESSION SCREENING 07/13/2024 COVID-19 VACCINE (1 - 2023-2 5 season) 2025 INFLUENZA VACCINE (#1) 2025 Respiratory Syncytial Virus [...] to complete this topic [place] [address] [facility] [employer] [facility] Care Teams Marketing Communications Specialist Relationship Specialty Start Date End Date Archana Franklin MD [address] [place] [address] PCP - General 04/17/20
== END 2025-03-17 10:49 | disposition home or self-care (01) ==
LOC: CHSIMG 10:51
PROVIDERS: PCP Internal Medicine; Visit Provider Internal Medicine
DX: E03.9 Hypothyroidism, unspecified (principal); E04.2 Nontoxic multinodular goiter; Z90.89 Acquired absence of other organs
CPT/HCPCS: 76536

== ENCOUNTER 2025-03-23 13:47 | Outpatient (CLI) | payer MEDICARE, SELFPAY ==
--- NOTE | ~2025-03-23 | NM_ITS ---
EXAMINATION: NM thyroid scan w uptake DATE: 03/24/2025 14:41 INDICATION: Hyperthyroidism. COMPARISON: CT neck 04/14/2014, ultrasound 03/17/2025 TECHNIQUE: 0.339 mCi I-123 was administered orally. Scintigraphic images of the thyroid gland were obtained at 24 hours. Thyroid uptake was calculated by the technologist. FINDINGS: Left thyroid lobe is absent. The thyroid uptake is 11% (normal 10-30%). There is heterogeneous activity in the right thyroid lobe correlating with multinodular goiter by ultrasound. IMPRESSION: 1. Normal 24-hour iodine uptake. 2. Multinodular goiter status post left hemithyroidectomy. Reviewed, dictated and finalized at location E.
--- OUTSIDE RECORDS SUMMARY | 2025-03-23 15:35 | XMS_ITS | Clinical Summary ---
Author Organization [facility] Address [address] [place] [address] Phone Care Team Providers Care Splunk Architect Name Role Phone Mercedes Coello MD Primary Care Provider + Gwen Grant MEDIA PRODUCTION SUPPORT MANAGER Unavailable +1- [phone] Allergies Active Allergy Reactions Criticality Noted Date [...] tubal ligation THYROIDECTOMY 07/13/2007 - 07/12/2008 Thyroidectomy [place] COLONOSCOPY FLX DX W/COLLJ SPEC WHEN PFRMD [...] on file Legal Sex Female 12:38 AM FINISHER HOT STRIP Gender Identity Not on file Sexual Orientation Straight 07/16/2020 9: 25 AM FINISHER HOT STRIP Obstetrics History Last Filed Vital Signs Vital Sign Reading Time Taken Comments Blood Pressure 132/73 07/21/2024 12:20 PM FINISHER HOT STRIP Pulse 103 07/21/2024 12:20 PM FINISHER HOT STRIP Temperature 36.3 C (97.3 F) 07/21/2024 11:55 AM FINISHER HOT STRIP Respiratory Rate 16 07/21/2024 12:20 PM FINISHER HOT STRIP Oxygen Saturation 100% 07/21/2024 12:20 PM FINISHER HOT STRIP Inhaled Oxygen Concentration - - Weight 74.8 kg (165 lb) 07/21/2024 8:33 AM FINISHER HOT STRIP Height 170.2 cm (5' 7) 07/02/2023 10:48 AM FINISHER HOT STRIP Body Mass Index 25.84 07/02/2023 10:48 AM FINISHER HOT STRIP Plan of Treatment Health Maintenance Due Date [...] 12/11/2022, 09/09/2022 Medical Devices Implanted Type Area Electro Mechanical Engineer Device Identifier Shelf Expiration Date Model / Serial / Lot Pac Right: [place] [address] [facility] [place] [address] MEDIC[address] [facility] [place] [address] MEDICARE [facility] Member Subscriber Plan / Payer ( fective 2019-Present) Name:Lesly Gregory Relation to Subscriber:Self Name:Lesly Gregory Payer ID:[id number] Group ID:Not on file Type:COMMERCIAL Address: [address] [place] [phone] Advance Directives For more information, please contact: [phone] * Full Code (Latest Code Status on File) Date Activated Date Inactivated Comments 07/21/2024 8:23 AM 07/22/2024 5:07 AM Care Teams Splunk Architect Relationship Specialty Start Date End Date Mercedes Coello MD PCP - General 11/11/17 Gwen Grant NP [address] [place] [address] Nurse Practitioner Medical Oncology 07/01/23
--- OUTSIDE RECORDS SUMMARY | 2025-03-23 15:35 | XMS_ITS | Clinical Summary ---
Author Organization [facility] Address [address] [place] [address] Phone Care Team Providers Care Training Specialist Name Role Phone Mercedes Coello MD Primary [...] to exams dated: 02/22/2015, 11/23/2013, and 09/16/2012 [facility]. BREAST TISSUE:There are scattered fibroglandular [...] exam. Electronically signed by: Summer spencer/sada:03/13/2016 16:35:18 Pallet Rectifier: Laisha Jernigan(Justin), [facility] letter sent: Normal Exam Reading location: [facility] BI-RADS: 2 Benign Procedure Note Summer [...] to exams dated: 02/22/2015, 11/23/2013, and 09/16/2012 [facility]. BREAST TISSUE:There are scattered fibroglandular [...] exam. Electronically signed by: Summer spencer/sada:03/13/2016 16:35:18 Pallet Rectifier: Laisha Jernigan(R), [facility] letter sent: Normal Exam Reading location: [facility] BI-RADS: 2 Benign us Archana Franklin MD IMG MAMMO ORDERABLES Final Result from Last 3 Months or Most Recently Relevant to Health Maintenance Care Teams Training Specialist Relationship Specialty Start Date End Date Mercedes Coello MD [address] [place] [address] PCP - General Family Medicine 03/13/16
--- OUTSIDE RECORDS SUMMARY | 2025-03-23 15:35 | XMS_ITS ---
Author Organization [facility] [employer] [facility] Address [address] [place] [address] Phone Care Team Providers Care Show Dog Trainer Name Role Phone Mercedes Coello MD Primary Care Provider + Gwen Grant CLINICAL REHABILITATION SPECIALIST Unavailable +1- [phone] Active Problems Problem Noted Date Diagnosed Date [...]
--- OUTSIDE RECORDS SUMMARY | 2025-03-23 15:35 | XMS_ITS | Encounter Summary ---
Author Organization [facility] [employer] [facility] Address [address] [place] [address] Phone Care Team Providers Care Letter Sorting Machine Operator Name Role Phone Mercedes Coello MD Primary Care Provider + Gwen Grant PRODUCT ENGINEERING MANAGER Unavailable +1- [phone] Encounter Details Date Type Department Care Team [...] on file Legal Sex Female 12:38 AM CHARGE WEIGHER Gender Identity Not on file Sexual Orientation Straight 07/16/2020 9: 25 AM CHARGE WEIGHER documented as of this encounter Plan of Treatment Not on file documented as of this encounter Procedures Procedure Name Priority Date/Time Associated Diagnosis Comments SCAN - RADIOLOGY/IMAGING 06/14/2024 documented in this encounter Results * SCAN - RADIOLOGY/IMAGING (06/14/2024) Anatomical Region Laterality Modality Other us Provider Scanning Final Result documented in this encounter Visit Diagnoses Not on filedocumented in this encounter Care Teams Letter Sorting Machine Operator Relationship Specialty Start Date End Date Merecdes Coello MD PCP - General 11/11/17 Gwen Grant NP [address] [place] [address] Nurse Practitioner Medical Oncology 07/01/23 documented as of this encounter
== END 2025-03-23 13:48 | disposition home or self-care (01) ==
PROVIDERS: PCP Internal Medicine; Visit Provider Internal Medicine
DX: E05.90 Thyrotoxicosis, unspecified without thyrotoxic crisis or storm (principal); E04.2 Nontoxic multinodular goiter
CPT/HCPCS: 78014; A9516

== ENCOUNTER 2025-05-26 10:45 | Outpatient (CLI) | payer MEDICARE, SELFPAY ==
[2025-05-26 10:59] LABS: Hematocrit 39.9 % (35.0-42.0); Hemoglobin 13.1 g/dL (11.7-13.8); Mean Corpuscular HGB Conc 32.8 g/dL (32-36); Mean Corpuscular Hemoglobin 30.3 pg (27.0-31.0); Mean Corpuscular Volume 92.4 fL (78.0-102.0); Platelet Count Result 313 K/mm3 (150-420); Red Blood Count 4.32 M/mm3 (4.20-5.40); White Blood Count 10.6 K/mm3 (4.8-10.8)
[2025-05-26 11:24] LABS: Anion Gap 10 mmol/L (4-12); Blood Urea Nitrogen 21 mg/dL (7-17); Calcium 9.8 mg/dL (8.4-10.2); Carbon Dioxide 28 mmol/L (22-30); Chloride 102 mmol/L (98-107); Estimated Glomerular Filt Rate > 60; Glucose 106 mg/dL (65-110); Osmolality Calculated 293 mOsm/kg (285-295); Potassium 4.5 mmol/L (3.4-5.0); Sodium 140 mmol/L (137-145)
[2025-05-26 11:43] LABS: Free T4 Free Thyroxine 1.42 ng/dL (0.78-2.19)
[2025-05-26 11:45] LABS: Free T3 5.61 pg/mL (2.18-3.98)
[2025-05-26 11:56] LABS: Thyroid Stimulating Hormone 0.272 uIU/mL (0.465-4.680)
== END 2025-05-26 10:46 | disposition home or self-care (01) ==
LOC: CHSLAB 10:47
PROVIDERS: PCP Internal Medicine; Visit Provider Internal Medicine
DX: E04.1 Nontoxic single thyroid nodule (principal); I10 Essential (primary) hypertension
CPT/HCPCS: 36415; 80048; 84439; 84443; 84481; 85027